=== PATIENT | female | born 1950 | race Caucasian/White ===

== ENCOUNTER 2018-05-24 06:28 | Inpatient (IN) | payer OTHER, MEDICARE ==
--- NOTE | 2018-05-24 07:10 | PDOC ---
History of Present Illness - General Chief Complaint: Lightheaded Stated Complaint: PAIN,DIZZINESS,DRY MOUTH Time Seen by Provider: 05/24/18 07:10 History Source: Patient Exam Limitations: No Limitations - History of Present Illness Initial Comments: 05/24/18 09:03 This is a 68 yo F with history of RUQ abd pain previously worked up by Dr Galaviz with US (showed cholelithiasis) and no other PNH, who presents due to severe 9/10 stabbing RUQ pain that started at 6 pm yesterday after a meal and has been constant, radiating to the back, associated with nausea, weakness and chills. It is similar in quality to her prior episodes of ruq pain but is more severe. prior episodes were self remitting after 2hr and occasionally associated with meals. She took ots flatulence medication this morning which did not help. She denies polyuria but no dysuria or hematuria. She denies sob, cough, fever, cp, palpitations, lightheadedness, vomiting, diarrhea, constipation, melena, hematochezia. Past History - Past Medical History Allergies/Adverse Reactions: Allergies Allergy/AdvReac Type Severity Reaction Status Date / Time No Known Allergies Allergy Verified 05/24/18 06:38 Home Medications: Ambulatory Orders NK [No Known Home Medication] 05/24/18 Anemia: No Asthma: No Cancer: No Cardiac Disorders: No CVA: No COPD: No CHF: No Dementia: No Diabetes: No GI Disorders: No Disorders: No HTN: No Hypercholesterolemia: No Liver Disease: No Seizures: No Thyroid Disease: No - Suicide/Smoking/Psychosocial Hx Smoking History: Never smoked Have you smoked in the past 12 months: No Information on smoking cessation initiated: No Hx Alcohol Use: No Drug/Substance Use Hx: No Substance Use Type: None Hx Substance Use Treatment: No Review of Systems - Review of Systems Able to Perform ROS?: Yes Is the patient limited Bulgarian proficient: No Constitutional: Yes: Chills, Malaise. No: Fever HEENTM: No: Nose Congestion, Difficulty Swallowing Respiratory: No: Cough, Orthopnea, Shortness of Breath Cardiac (ROS): No: Chest Pain, Edema, Irregular Heart Rate, Lightheadedness, Palpitations, Syncope ABD/GI: Yes: Nausea, Abdominal cramping. No: Abdominal Distended, Blood Streaked Bowels, Constipated, Diarrhea, Rectal Bleeding, Vomiting, Tarry Stools : No: Dysuria, Hematuria Musculoskeletal: Yes: Back Pain (r flank) Neurological: No: Headache, Numbness, Paresthesia Psychiatric: No: Anxiety, Depression *Physical Exam - Vital Signs Last Vital Signs Temp Pulse Resp BP Pulse Ox 97.2 F L 106 H 18 174/92 H 100 05/24/18 06:40 05/24/18 06:40 05/24/18 06:40 05/24/18 06:40 05/24/18 06:40 - Physical Exam General Appearance: Yes: Nourished, Appropriately Dressed, Mild Distress, Obese HEENT: positive: EOMI, Normal Voice, Symmetrical. negative: Scleral Icterus (R) , Scleral Icterus (L) Neck: positive: Trachea midline, Normal Thyroid, Supple. negative: Tender Respiratory/Chest: positive: Lungs Clear, Normal Breath Sounds. negative: Chest Tender Cardiovascular: positive: Regular Rate, S1, S2, Edema (b/l pedal, states its chronic ). negative: JVD Gastrointestinal/Abdominal: positive: Soft, Decreased BS, Guarding (voluntary in RUQ), Tenderness (ruq). 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 NML intact (grossly ), Fully Oriented, Alert, Normal Mood/Affect Moderate Sedation - Procedure Monitoring Vital Signs: Procedure Monitoring Vital Signs Temperature 97.2 F L 05/24/18 06:40 Pulse Rate 106 H 05/24/18 06:40 Respiratory Rate 18 05/24/18 06:40 Blood Pressure 174/92 H 05/24/18 06:40 O2 Sat by Pulse Oximetry (%) 100 05/24/18 06:40 ED Treatment Course - LABORATORY CBC & Chemistry Diagram: 05/24/18 07:50 05/24/18 07:50 - ADDITIONAL ORDERS Additional order review: 05/24/18 09:52 rectal temp 99.5F EKG NS 95, borderline L axis, inverted t in III, Q waves in I, AVL, no evidence of acs or strain labs significant for leukocytosis 12.8 w left shift and lactic acid 4.2, ua negative for infection clinical picture most consistent with severe sepsis due to gi source. strongly suspecting cholecystitis 05/24/18 12:24 abd US consistent with cholelithiasis w/o cholecystitis 05/24/18 12:26 patient being hydrated with NS, lactic acid trending down. also receiving zosyn 05/24/18 12:27 CT abd/pelvis done with iv cont shows distended gb with mild perechilecystic inflammation and cholelithiasis contacting gen surg and hospitalist for admission to m/s 05/24/18 12:31 05/24/18 12:56 *DC/Admit/Observation/Transfer Diagnosis at time of Disposition: Acute cholecystitis due to biliary calculus, Severe sepsis - Discharge Dispostion Condition at time of disposition: Guarded Decision to Admit order: Yes - Referrals - Patient Instructions - Post Discharge Activity
[2018-05-24] MEDS ORDERED: FAMOTIDINE 20 MG/50 ML IVPB 20 MG/50 ML MG IVPB ONE ×2 (07:27→07:46)
[2018-05-24] MEDS ORDERED: SODIUM CHLORIDE 0.9% 500 ML INFUS.BAG IV ONE ×2 (07:27→11:09)
[2018-05-24] MEDS ORDERED: ONDANSETRON 4 MG/2 ML VIAL IVPUSH ONE ×2 (07:28→13:29)
[2018-05-24] MEDS ORDERED: KETOROLAC TROMETHAMINE 30 MG/1 ML VIAL IVPUSH ONE (07:29)
[2018-05-24] MEDS ORDERED: ONDANSETRON 4 MG/2 ML VIAL ONE ×2 (07:46→13:40)
[2018-05-24] MEDS ORDERED: KETOROLAC TROMETHAMINE 30 MG/1 ML VIAL ONE (07:46)
[2018-05-24 08:09] LABS: BASO % 0.4 % (0-2.0); EOS % 0.1 % (0-4.5); HEMATOCRIT 42.2 % (32.4-45.2); HEMOGLOBIN 14.4 GM/dL (10.7-15.3); LYMPH % 6.9 % (8-40); MCH 31.3 pg (25.7-33.7); MCHC 34.2 g/dl (32.0-36.0); MEAN CELL VOLUME 91.7 fl (80-96); MEAN PLT VOLUME 8.8 fl (7.5-11.1); MONO % 2.1 % (3.8-10.2); NEUT % 90.5 % (42.8-82.8); PLATELET COUNT 225 K/MM3 (134-434); RDW 13.9 % (11.6-15.6); WHITE BLOOD COUNT 12.8 K/mm3 (4.0-10.0)
[2018-05-24 08:41] LABS: ALBUMIN 3.8 g/dl (3.4-5.0); ALK PHOS 175 U/L (45-117); ANION GAP 12 MMOL/L (8-16); BILIRUBIN,TOTAL 0.4 mg/dL (0.2-1); BLOOD UREA NITROGEN 16 mg/dL (7-18); CALCIUM 8.9 mg/dL (8.5-10.1); CHLORIDE 100 mmol/L (98-107); CO2 23 mmol/L (21-32); GLUCOSE,RANDOM 177 mg/dL (74-106); LIPASE 98 U/L (73-393); POTASSIUM 3.7 mmol/L (3.5-5.1); SGOT/AST 17 U/L (15-37); SGPT/ALT 21 U/L (13-61); SODIUM 135 mmol/L (136-145); TOT PROT 8.8 g/dl (6.4-8.2); TRIGLYCERIDES 75 mg/dL (0-150)
[2018-05-24] MEDS ORDERED: ACETAMINOPHEN 1000 MG/100 ML VIAL (NON FORMULARY) IVPB ONE ×2 (08:57→23:09)
[2018-05-24] MEDS ORDERED: VANCOMYCIN 1 GM in D5W (PRE-DOCKED) 1,000 MG/250 ML IVPB ONE (08:57)
[2018-05-24] MEDS ORDERED: PIPERACILLIN/TAZOB 3.375 GM 3.375 GM in DEXTROSE 5%-WATER - 50 ML IVPB ONE (08:58)
[2018-05-24] MEDS ORDERED: PIPERACILLIN/TAZOB 4.5 GM 4.5 GM in DEXTROSE 5%-WATER 100 ML IVPB ONE (09:31)
[2018-05-24] MEDS ORDERED: PIPERACILLIN/TAZOB 4.5 GM 4.5 GM/100 ML BAG IVPB ONE (10:08)
[2018-05-24 10:19] LABS: URINE APPEARANCE CLEAR; URINE BILIRUBIN NEGATIVE (<2.0 mg/dL); URINE COLOR LTYELLOW; URINE GLUCOSE (UA) 1+ (NEGATIVE); URINE KETONE TRACE (NEGATIVE); URINE LEUK ESTERASE NEGATIVE (NEGATIVE); URINE NITRITE NEGATIVE (NEGATIVE); URINE PROTEIN 2+ (NEGATIVE); URINE UROBILINOGEN NEGATIVE mg/dL (0.2-1.0)
--- NOTE | 2018-05-24 10:34 | PDOC ---
Attending Attestation - Resident Resident Name: Julissa Brenner - ED Attending Attestation I have performed the following: I have examined & evaluated the patient, The case was reviewed & discussed with the resident, I agree w/resident's findings & plan, Exceptions are as noted - HPI HPI: 05/24/18 10:39 68 years old past medical history significant for obesity gallstones presents to the ED with one-day history of 10 out of 10 stabbing right upper quadrant pain starting yesterday after a meal. Pain is persistent constant no associated fever chills nausea vomiting or diarrhea ROS: A complete review of 10 out of 10 review of systems is taken and is negative apart from what is previously mentioned below and in the HPI. - Physicial Exam PE: 05/24/18 10:39 Vitals: Triage Vital signs reviewed General Appearance: no acute distress, well nourished well developed, Head: Atraumatic, Cardiac: Regular rate and rhythym, no murmurs, no rubs, no gallops, Lungs: Clear to auscultation bilateral, good air movement bilaterally, Abdomen: Soft, non distended, normal bowel sounds, right upper quadrant tenderness to palpation Extremities: Full range of motion to all extremities, no cyanosis, clubbing, or edema Skin: Warm and dry, no rashes or lesions, no rash, no petechiae Psych: normal mood, normal affect - Medical Decision Making 05/24/18 10:41 68 years old with reproducible right upper quadrant tenderness palpation we'll obtain labs ultrasound pain meds IV fluids observe and reassess. 05/24/18 11:46 Elevated lactic no clear evidence of cholecystitis on ultrasound Patient will hydrate prior to CT We'll CT abdomen pelvis to rule out other abdominal pathology. 05/24/18 15:44 At this time based on laboratory analysis history and examination is most consistent with cholecystitis is versus cholelithiasis given elevated lactic after consultation with surgery decision make to perform cholecystectomy Patient covered with broad-spectrum antibiotics she'll be taken to or for definitive management.
[2018-05-24 10:35] LABS: EPI CELLS RARE /HPF (FEW); URINE MUCUS RARE
--- NOTE | 2018-05-24 11:40 | EKG ---
Test Reason : Blood Pressure : / mmHG Vent. Rate : 095 BPM Atrial Rate : 095 BPM P-R Int : 162 ms QRS Dur : 090 ms QT Int : 370 ms P-R-T Axes : 033 -28 007 degrees QTc Int : 464 ms NORMAL SINUS RHYTHM POSSIBLE ANTEROLATERAL INFARCT , AGE UNDETERMINED ABNORMAL ECG NO PREVIOUS ECGS AVAILABLE Confirmed by DIMPLE REYNOLDS MD ([id number]) on 05/24/2018 11:39:39 AM Referred By: Confirmed By:DIMPLE REYNOLDS MD
[2018-05-24] MEDS ORDERED: morphine CARPU-JECT 4 MG/1 ML DISP.SYRIN IVPUSH ONE (13:17)
--- NOTE | 2018-05-24 13:18 | CONSULT ---
- Consultation REQUESTING PROVIDER: CONSULT REQUEST: We have been asked to surgically evaluate this patient for cholecystitis PCP:Kei Tsai MD HISTORY OF PRESENT ILLNESS: 68yo F presented to the ED with complaint of severe RUQ pain since last night. Pt states the pain was associated with nausea but no vomiting. Pt denies any fever, but said she had chills. Pt was told in the past that she had gallstones , but never followed up with a surgeon. Pt states that pain started after she ate dinner. Pt denies constipation or diarrhea. Pt states that pain is a little improved, but continues to complain of RUQ pain. PMHx: Denies PSHx: denies Home Medications Medication Instructions Recorded NK [No Known Home Medication] 05/24/18 Allergies Allergy/AdvReac Type Severity Reaction Status Date / Time No Known Allergies Allergy Verified 05/24/18 06:38 PHYSICAL EXAM: GENERAL: Awake, alert, and fully oriented, in no acute distress. HEAD: Normal with no signs of trauma. EYES: PERRL, sclera anicteric, conjunctiva clear. NECK: Normal ROM, supple without lymphadenopathy, JVD, or masses. LUNGS: Clear to auscultation bilat anteriorly. No wheezes, and no crackles. No accessory muscle use. HEART: Regular rate and rhythm. No murmurs ABDOMEN: Soft, nontender, diffuse abd pain worst in RUQ, normoactive bowel sounds, no guarding, no rebound, no masses. No organomegaly. NEUROLOGICAL: Normal speech, gait not observed. PSYCH: Cooperative. Good eye contact. Appropriate mood and affect. SKIN: Warm, dry, normal turgor, no rashes or lesions noted. Vital Signs Temperature 99.2 F 05/24/18 09:50 Pulse Rate 92 H 05/24/18 09:11 Respiratory Rate 18 05/24/18 09:11 Blood Pressure 162/99 05/24/18 09:11 O2 Sat by Pulse Oximetry (%) 96 05/24/18 09:11 Lab Results WBC 12.8 K/mm3 (4.0-10.0) H 05/24/18 07:50 RBC 4.60 M/mm3 (3.60-5.2) 05/24/18 07:50 Hgb 14.4 GM/dL (10.7-15.3) 05/24/18 07:50 Hct 42.2 % (32.4-45.2) 05/24/18 07:50 MCV 91.7 fl (80-96) 05/24/18 07:50 MCHC 34.2 g/dl (32.0-36.0) 05/24/18 07:50 RDW 13.9 % (11.6-15.6) 05/24/18 07:50 Plt Count 225 K/MM3 (134-434) 05/24/18 07:50 Sodium 135 mmol/L (136-145) L 05/24/18 07:50 Potassium 3.7 mmol/L (3.5-5.1) 05/24/18 07:50 Chloride 100 mmol/L (98-107) 05/24/18 07:50 Carbon Dioxide 23 mmol/L (21-32) 05/24/18 07:50 Anion Gap 12 MMOL/L (8-16) 05/24/18 07:50 BUN 16 mg/dL (7-18) 05/24/18 07:50 Creatinine 1.0 mg/dL (0.55-1.3) 05/24/18 07:50 Random Glucose 177 mg/dL (74-106) H 05/24/18 07:50 Calcium 8.9 mg/dL (8.5-10.1) 05/24/18 07:50 Blood Type O POSITIVE 05/24/18 10:03 Antibody Screen Negative 05/24/18 07:50 Abd US: Gallstones present, no CBD dilatation Problem List - Problems (1) Acute cholecystitis due to biliary calculus Assessment/Plan: Plan -pt will go to the OR today for lap cholecystitis, pt agrees with plan. -Keep NPO -IV fluids -admit to Medicine Code(s): K80.00 - CALCULUS OF GALLBLADDER W ACUTE CHOLECYST W/O OBSTRUCTION
[2018-05-24] MEDS ORDERED: morphine SULFATE 4 MG/ML VIAL ONE (13:19)
--- NOTE | 2018-05-24 13:23 | HP ---
Admitting History and Physical - Primary Care Physician PCP: Rickey Thomas - Admission Chief Complaint: cholecystitis History of Present Illness: 68 year old female pmh of obesity, cholelithiasis, hepatic steatosis presents with worsening abdominal pain and nausea since yesterday. Pt reports onset of severe RUQ/epigastric pain after dinner around 6pm. She describes the pain was 9 /10 sharp, radiating to the lower back. Pt reports pain is improved currently after receiving morphine. She also c/o accompanying chills. Pt endorses taking 2 regular aspirin yesterday for LBP. Otherwise, pt denies any further complaints. Denies any chest pain, sob, lightheadedness, dizziness, vomiting, dysuria, fever, or rash. Upon discussion with pt's PCP , pt has poor compliance with outpt follow up. History Source: Patient, Family Member, Medical Record Limitations to Obtaining History: Poor Historian - Past Medical History Gastrointestinal: Yes: Diverticulosis Hepatobiliary: Yes: Cholelithiasis, Other (Hepatic steatosis) - Past Surgical History Past Surgical History: Yes: Colonoscopy - Smoking History Smoking history: Never smoked Have you smoked in the past 12 months: No - Alcohol/Substance Use Hx Alcohol Use: No History of Substance Use: reports: None - Social History Usual Living Arrangement: Yes: With Significant Other (sister) ADL: Independent Home Medications - Allergies Allergies/Adverse Reactions: Allergies Allergy/AdvReac Type Severity Reaction Status Date / Time ephedrine AdvReac Verified 05/24/18 13:54 - Home Medications Home Medications: Ambulatory Orders Aspirin [ASA -] 325 mg PO DAILY PRN 05/24/18 Family Disease History - Family Disease History Family Disease History: Diabetes: Father, Heart Disease: Father, Mother Review of Systems Findings/Remarks: as per hpi Physical Examination Vital Signs: Vital Signs Temperature 99.2 F 05/24/18 09:50 Pulse Rate 92 H 05/24/18 09:11 Respiratory Rate 18 05/24/18 09:11 Blood Pressure 162/99 05/24/18 09:11 O2 Sat by Pulse Oximetry (%) 96 05/24/18 09:11 Constitutional: Yes: Well Nourished, Anxious, Obese Cardiovascular: Yes: Regular Rate and Rhythm, Tachycardia Respiratory: Yes: WNL, Regular, CTA Bilaterally. No: Accessory Muscle Use, SOB , Tachypnea, Wheezes Gastrointestinal: Yes: Normal Bowel Sounds, Soft, Abdomen, Obese, Tenderness ( RUQ). No: Distention Renal/: Yes: WNL Musculoskeletal: Yes: WNL Extremities: Yes: WNL Neurological: Yes: WNL, Alert, Oriented Psychiatric: Yes: WNL, Alert, Oriented Labs: CBC, BMP 05/24/18 07:50 05/24/18 07:50 Imaging - Results Cat Scan: Report Reviewed Ultrasound: Report Reviewed EKG: Report Reviewed, Image Reviewed (NSR) Problem List - Problems (1) Sepsis Assessment/Plan: tachycardic, wbc 12k, lactic acid 4.2 at admission alk phos elevated 2/[address] abd/pelvic- distended gall bladder/mild inflammation/calculi case discussed w/ surgery- plan for lap cholecystectomy today NPO IVF Morphine/Zofran prn Zosyn per ID await all cultures surgery following Code(s): A41.9 - SEPSIS, UNSPECIFIED ORGANISM (2) Acute cholecystitis due to biliary calculus Assessment/Plan: as above Code(s): K80.00 - CALCULUS OF GALLBLADDER W ACUTE CHOLECYST W/O OBSTRUCTION (3) Lactic acidosis Assessment/Plan: improving, trend Code(s): E87.2 - ACIDOSIS (4) Elevated blood pressure reading without diagnosis of hypertension Assessment/Plan: suspect anxiety provoked BP controlled outpt adequate pain control reassess Code(s): R03.0 - ELEVATED BLOOD-PRESSURE READING, W/O DIAGNOSIS OF HTN (5) Obesity Assessment/Plan: recommend outpt management by PCP Code(s): E66.9 - OBESITY, UNSPECIFIED Qualifiers: Obesity type: due to excess calories Obesity classification: adult class 3 (BMI >= 40) Body mass index: BMI 45.0-49.9
[2018-05-24] MEDS ORDERED: ONDANSETRON 4 MG/2 ML VIAL IVPUSH PRN ×2 (13:25→19:29)
[2018-05-24] MEDS ORDERED: MORPHINE SULFATE 2 MG/ML VIAL IVPUSH PRN (13:27)
--- NOTE | 2018-05-24 13:36 | PN ---
Progress Note (short form) - Note Progress Note: ID consult dictated imp/reccd 68 yo female with known cholelithiasis ate eggs last night and developed midepigastric pain radiation to her RUQ and nausea did not vomit no dysuria +BM came to ED lactic acid elevated 4.2 leukocytosis-12.8 ct scan abd/pelvis-distended GB with calculi with mild pericholycystic inflammation cultures sent started on Zosyn suggest continue zosyn for possible acute cholycystitis surgical evaluation in progress Problem List - Problems (1) Acute cholecystitis due to biliary calculus Code(s): K80.00 - CALCULUS OF GALLBLADDER W ACUTE CHOLECYST W/O OBSTRUCTION (2) Lactic acidosis Code(s): E87.2 - ACIDOSIS
[2018-05-24] MEDS ORDERED: KETOROLAC TROMETHAMINE 30 MG/1 ML VIAL IVPUSH PRN (13:40)
[2018-05-24] MEDS ORDERED: SODIUM CHLORIDE 1,000 ML IV SCH ×2 (13:45→19:29)
[2018-05-24 13:52] LABS: INR 1.09 (0.83-1.09); PROTHROMBIN TIME (PATIENT) 12.9 SEC (9.7-13.0)
[2018-05-24] MEDS ORDERED: PROPOFOL 20 ML ONE (14:27)
[2018-05-24] MEDS ORDERED: ROCURONIUM BROMIDE 50 MG/5 ML VIAL ONE (14:28)
[2018-05-24] MEDS ORDERED: SUCCINYLCHOLINE CHLORIDE 200 MG/10 ML VIAL ONE (14:28)
--- NOTE | 2018-05-24 14:53 | CONS ---
DATE OF CONSULTATION: DATE OF DICTATION: 05/24/2018 REQUESTING PHYSICIAN: Hospitalist service. HISTORY: This is a 68-year-old woman. She is followed outpatient by Dr. Thomas who has a known history of cholelithiasis. She presents with severe right upper quadrant pain that started last night after she had eggs. It has been constant. It radiates from her mid epigastric region around to her right upper quadrant in her back. She has had nausea, weakness, and chills. She has had no fever. She has had no vomiting. She reports having had a bowel movement at home. She has no dysuria. She has had episodes like this in the past, but this is definitely the worst she has ever had. She denies cough, shortness of breath, or fever. ALLERGIES: EPHEDRINE. MEDICATIONS: She takes aspirin p.r.n. at home. She takes MiraLAX p.r.n. at home for diverticulosis. PAST MEDICAL HISTORY: Notable for prior cholecystectomy that revealed diverticulosis. She has known gallstones. PAST SURGICAL HISTORY: She has never had any surgery. SOCIAL HISTORY: She lives with her sister. There is no history of any cigarette or substance use. REVIEW OF SYSTEMS: Notable for chills and nausea. She also has chronic back pain, which she has had for several years she attributes to taking care of her elderly mother. PHYSICAL EXAMINATION: Vital Signs: T-max 99.2, culture results temperature 98.6, pulse 120, blood pressure 204/100, respiratory rate 24. She is saturating 98% on room air. HEENT: She is normocephalic. Her eyes are anicteric. Neck: Supple. General: She is insistent on sitting due to nausea. She does not want to lie down. Lungs: Clear to auscultation. She has diminished breath sounds at the bases. Heart: Regular rate and rhythm. Abdomen: Soft. She has some mild midepigastric discomfort to palpation. She has no CVA tenderness. She has no suprapubic pain. Extremities: Without edema. LABORATORY DATA: White count 12.8, hemoglobin 14.4, platelets 225, BUN 16, creatinine 1, lactic acid 4.2, repeat 2.8 after hydration, alkaline phosphatase 175. Urinalysis is negative. Cultures are pending. Abdominal ultrasound was limited due to patient's body habitus. She had a CAT scan of her abdomen and pelvis that was notable for diffuse fatty infiltration of the liver, distended gallbladder with suspected calculi, and mild pericholecystic inflammation. In summary, this is a 68-year-old obese woman with abdominal pain, known cholelithiasis, lactic acidosis, CT scan suggestive of acute cholecystitis. Cultures have been sent. She was started on Zosyn. I would suggest we continue Zosyn for possible acute cholecystitis. Surgical evaluation is in progress. Further recommendations to follow. The case was discussed with the hospitalist. JUMANA MORAES M.D. [id number]
[2018-05-24] MEDS ORDERED: DEXAMETHASONE SOD PHOSPHATE 4 MG/1 ML VIAL ONE (15:23)
[2018-05-24] MEDS ORDERED: PHENYLEPHRINE HCL 10 MG/1 ML SINGLE DOSE VIAL ONE (16:24)
[2018-05-24] MEDS ORDERED: BUPIVACAINE HCL/PF 0.5% (5MG/ML) 10 ML VIAL IJ ONE (16:43)
[2018-05-24] MEDS ORDERED: METOPROLOL TARTRATE 5 MG/5 ML VIAL ONE (17:52)
[2018-05-24] MEDS ORDERED: NEOSTIGMINE METHYLSULFATE 0.5 MG/ML - 10 ML MDV ONE (17:56)
[2018-05-24] MEDS ORDERED: PIPERACILLIN/TAZOB 4.5 GM 4.5 GM in DEXTROSE 5%-WATER 100 ML IVPB SCH (18:00)
[2018-05-24] MEDS ORDERED: LORazepam 2 MG/ML SDV VIAL ONE (18:18)
--- NOTE | 2018-05-24 18:23 | OP ---
Operative Note - Note: Operative Date: 05/24/18 Pre-Operative Diagnosis: Cholelithiasis, Acute Cholecystitis Operation: Laparoscopic cholecystectomy Findings: as dictated Post-Operative Diagnosis: Same as Pre-op Surgeon: Chito Benites Anesthesiologist/ART INSTALLER: Angelina Pizano Anesthesia: General, Local Specimens Removed: Gallbladder, multiple gallstones Estimated Blood Loss (mls): 50 (ml) Drains & Tubes with Location: Inderjit drain left in gallbladder bed Fluid Volume Replaced (mls): 1,300 (ml LR) Operative Report Dictated: Yes
[2018-05-24] MEDS ORDERED: LORazepam 2 MG/ML SDV VIAL IVPUSH PRN (18:59)
[2018-05-24] MEDS ORDERED: PIPERACILLIN/TAZOBACTAM 4.5 GM VIAL IVPB ONE (19:45)
[2018-05-24 21:53] VITALS: BMI 52.2
[2018-05-24] MEDS: MORPHINE SULFATE 2 MG/ML VIAL IVPUSH PRN (21:58)
[2018-05-24] MEDS: LACTATED RINGERS SOLUTION 1,000 ML IV SCH (21:59)
[2018-05-24] MEDS: HEPARIN NA (PORCINE) 5,000 UNITS/ML 1ML VIAL SQ SCH (21:59)
[2018-05-24] MEDS ORDERED: HEPARIN NA (PORCINE) 5,000 UNITS/ML 1ML VIAL SQ SCH (22:00)
--- NOTE | 2018-05-24 22:50 | CONSULT ---
Consultation: REQUESTING PROVIDER: Dr Benites CONSULT REQUEST: We have been asked to medically evaluate this patient for ( Post Op monitor ). HISTORY OF PRESENT ILLNESS: 68 year old female pmh of obesity, cholelithiasis, hepatic steatosis presents with worsening abdominal pain and nausea since yesterday. Pt reports onset of severe RUQ/epigastric pain after dinner around 6pm. She describes the pain was 9 /10 sharp, radiating to the lower back. Pt reports pain is improved currently after receiving morphine. She also c/o accompanying chills. Pt endorses taking 2 regular aspirin yesterday for LBP. Otherwise, pt denies any further complaints. Denies any chest pain, sob, lightheadedness, dizziness, vomiting, dysuria, fever, or rash. Upon discussion with pt's PCP , pt has poor compliance with outpt follow up. REVIEW OF SYSTEMS: unable to obtain . PHYSICAL EXAMINATION Vital Signs - 24 hr 05/24/18 05/24/18 05/24/18 06:40 09:11 09:50 Temperature 97.2 F L 99.2 F Pulse Rate 106 H Pulse Rate [ 92 H Left Radial] Respiratory 18 18 Rate Blood Pressure 174/92 H Blood Pressure 162/99 [Left Arm] O2 Sat by Pulse 100 96 Oximetry (%) 05/24/18 05/24/18 05/24/18 12:38 13:20 13:47 Temperature 98.7 F 98.6 F Pulse Rate 93 H Pulse Rate [ 120 H Left Radial] Respiratory 18 24 H Rate Blood Pressure 102/75 Blood Pressure 204/100 H [Left Arm] O2 Sat by Pulse 97 98 Oximetry (%) 05/24/18 05/24/18 05/24/18 13:57 18:14 18:30 Temperature 98.6 F 98.1 F Pulse Rate 80 82 Pulse Rate [ 102 H Left Radial] Respiratory 21 H 37 H 30 H Rate Blood Pressure 177/100 H 142/82 Blood Pressure 201/105 H [Left Arm] O2 Sat by Pulse 97 98 95 Oximetry (%) 05/24/18 05/24/18 05/24/18 18:45 19:00 19:15 Temperature Pulse Rate 88 84 89 Pulse Rate [ Left Radial] Respiratory 28 H 25 H 21 H Rate Blood Pressure 120/74 132/105 H 121/78 Blood Pressure [Left Arm] O2 Sat by Pulse 98 95 96 Oximetry (%) 05/24/18 05/24/18 05/24/18 19:30 19:45 20:00 Temperature Pulse Rate 80 89 104 H Pulse Rate [ Left Radial] Respiratory 22 H 14 15 Rate Blood Pressure 109/65 100/74 132/74 Blood Pressure [Left Arm] O2 Sat by Pulse 95 98 97 Oximetry (%) 05/24/18 05/24/18 05/24/18 20:15 20:30 20:45 Temperature 98.7 F 98.7 F Pulse Rate 110 H 104 H 88 Pulse Rate [ Left Radial] Respiratory 21 H 26 H 18 Rate Blood Pressure 124/58 L 125/79 112/59 L Blood Pressure [Left Arm] O2 Sat by Pulse 95 97 97 Oximetry (%) 05/24/18 22:00 Temperature Pulse Rate 93 H Pulse Rate [ Left Radial] Respiratory 15 Rate Blood Pressure 121/83 Blood Pressure [Left Arm] O2 Sat by Pulse Oximetry (%) GENERAL: Awake, alert, HEAD: Normal with no signs of trauma. EYES: Pupils equal, round and reactive to light, extraocular movements intact, EARS, NOSE, THROAT: Ears normal, nares patent, oropharynx clear without exudates. Moist mucous membranes. NECK: Normal range of motion, supple LUNGS: Breath sounds equal, clear to auscultation bilaterally. HEART: Regular rate and rhythm, normal S1 and S2 without murmur, rub or gallop. ABDOMEN: obese Soft, mild diffuse tender, distended, normoactive bowel sounds, no guarding,3 surgical wound covered with gauze , MUSCULOSKELETAL: Normal range of motion at all joints. No bony deformities or tenderness. No CVA tenderness. LOWER EXTREMITIES: 2+ pulses, warm, well-perfused. No calf tenderness. No peripheral edema. NEUROLOGICAL: no focal defect Laboratory Results - last 24 hr 05/24/18 05/24/18 05/24/18 07:50 07:50 07:50 WBC 12.8 H RBC 4.60 Hgb 14.4 Hct 42.2 MCV 91.7 MCH 31.3 MCHC 34.2 RDW 13.9 Plt Count 225 MPV 8.8 Absolute Neuts (auto) 11.6 H Neutrophils % 90.5 H Lymphocytes % 6.9 L Monocytes % 2.1 L Eosinophils % 0.1 Basophils % 0.4 Nucleated RBC % 0 PT with INR INR Sodium 135 L Potassium 3.7 Chloride 100 Carbon Dioxide 23 Anion Gap 12 BUN 16 Creatinine 1.0 Creat Clearance w eGFR 54.97 Random Glucose 177 H Lactic Acid 4.2 H* Calcium 8.9 Total Bilirubin 0.4 AST 17 ALT 21 Alkaline Phosphatase 175 H Creatine Kinase 56 Troponin I 0.02 Total Protein 8.8 H Albumin 3.8 Triglycerides 75 Lipase 98 Urine Color Urine Appearance Urine pH Ur Specific [place] Urine Protein Urine Glucose (UA) Urine Ketones Urine Blood Urine Nitrite Urine Bilirubin Urine Urobilinogen Ur Leukocyte Esterase Urine WBC (Auto) Urine RBC (Auto) Ur Epithelial Cells Urine Mucus Blood Type Antibody Screen 05/24/18 05/24/18 05/24/18 07:50 09:47 10:03 WBC RBC Hgb Hct MCV MCH MCHC RDW Plt Count MPV Absolute Neuts (auto) Neutrophils % Lymphocytes % Monocytes % Eosinophils % Basophils % Nucleated RBC % PT with INR INR Sodium Potassium Chloride Carbon Dioxide Anion Gap BUN Creatinine Creat Clearance w eGFR Random Glucose Lactic Acid Calcium Total Bilirubin AST ALT Alkaline Phosphatase Creatine Kinase Troponin I Total Protein Albumin Triglycerides Lipase Urine Color Ltyellow Urine Appearance Clear Urine pH 8.0 Ur Specific [place] 1.015 Urine Protein 2+ H Urine Glucose (UA) 1+ H Urine Ketones Trace H Urine Blood Negative Urine Nitrite Negative Urine Bilirubin Negative Urine Urobilinogen Negative Ur Leukocyte Esterase Negative Urine WBC (Auto) 2 Urine RBC (Auto) 3 Ur Epithelial Cells Rare Urine Mucus Rare Blood Type O POSITIVE O POSITIVE Antibody Screen Negative 05/24/18 05/24/18 11:22 13:28 WBC RBC Hgb Hct MCV MCH MCHC RDW Plt Count MPV Absolute Neuts (auto) Neutrophils % Lymphocytes % Monocytes % Eosinophils % Basophils % Nucleated RBC % PT with INR 12.90 INR 1.09 Sodium Potassium Chloride Carbon Dioxide Anion Gap BUN Creatinine Creat Clearance w eGFR Random Glucose Lactic Acid 2.8 H* Calcium Total Bilirubin AST ALT Alkaline Phosphatase Creatine Kinase Troponin I Total Protein Albumin Triglycerides Lipase Urine Color Urine Appearance Urine pH Ur Specific [place] Urine Protein Urine Glucose (UA) Urine Ketones Urine Blood Urine Nitrite Urine Bilirubin Urine Urobilinogen Ur Leukocyte Esterase Urine WBC (Auto) Urine RBC (Auto) Ur Epithelial Cells Urine Mucus Blood Type Antibody Screen Active Medications Generic Name Dose Route Start Last Admin Trade Name Freq PRN Reason Stop Dose Admin Fentanyl 50 mcg 05/24/18 18:58 Sublimaze Injection - IVPUSH Q5M PRN PAIN-PACU ORDER X 4 DOSES ONLY Heparin Sodium (Porcine) 5,000 unit 05/24/18 22:00 05/24/18 21:59 Heparin - SQ 5,000 unit TID DOMINICK Administration Piperacillin Sod/Tazobactam 100 mls @ 200 mls/hr 05/25/18 19:45 05/24/18 20: 00 Sod 4.5 gm/ Dextrose IVPB 100 mls Q8H-IV DOMINICK Administration Protocol Lactated Ringer's 1,000 mls @ 42 mls/hr 05/24/18 19:45 05/24/18 21:59 Lactated Ringers Solution IV Not Given ASDIR DOMINICK Influenza Virus Vaccine Quadrival 60 mcg 05/24/18 21:54 Flulaval Quad [id number] IM 05/24/18 21:55 .ONCE ONE Lorazepam 0.5 mg 05/24/18 18:59 Ativan Injection - IVPUSH ONCE PRN AGITATION Morphine Sulfate 2 mg 05/24/18 19:29 05/24/18 21:58 Morphine Sulfate IVPUSH 2 mg Q4H PRN Administration PAIN LEVEL 6-10 Ondansetron HCl 4 mg 05/24/18 19:29 05/24/18 22:06 Zofran Injection IVPUSH 4 mg Q6H PRN Administration NAUSEA AND/OR VOMITING Pneumococcal 13-Valent Conj Vacc 0.5 ml 05/24/18 21:54 Prevnar 13 Syringe - IM 05/24/18 21:55 .ONCE ONE CBC, BMP 05/24/18 07:50 05/24/18 07:50 ASSESSMENT/PLAN: 68 year old female pmh of obesity, cholelithiasis, hepatic steatosis presents with worsening abdominal pain and nausea since yesterday, had laparoscopic cholecystectomy and was admitted to ICU per [facility] request for over night monitoring # S/P laparoscopic cholecystectomy for acute cholecystitis * POD#0 * Pain control per anesthesia * IV fluid RL * Incentive spirometry * CBC, CMP , MAg, P in AM * BP, audiology technician * pulse oxy * PT/OT when stable * NPO till passing flatus * zosyn per ID * Monitor drain # Lactic acidosis * trending down likely due to infection vs acute phase * IV fluids * ABx per ID Dank Zosyn # Morbid obesity * consulted about life style change and diet modification # FEN * LR @ 42 CC * monitor lytes * NPO # Proph * DVTS SCDS , hep SQ TID * GI: not indicated # Dispo: monitor in ICU over night # Full code Dispo: We will continue to follow the patient. Thank you for this consultative opportunity. Visit type - Emergency Visit Emergency Visit: Yes ED Registration Date: 05/24/18 Care time: The patient presented to the Emergency Department on the above date and was hospitalized for further evaluation of their emergent condition. - New Patient This patient is new to me today: Yes Date on this admission: 05/24/18 - Critical Care Critical Care patient: Yes Total Critical Care Time (in minutes): 45 Critical Care Statement: The care of this patient involved high complexity decision making to prevent further life threatening deterioration of the patient 's condition and/or to evaluate & treat vital organ system(s) failure or risk of failure.
[2018-05-25] MEDS: PIPERACILLIN/TAZOB 4.5 GM 4.5 GM in DEXTROSE 5%-WATER 100 ML IVPB SCH ×3 (03:15→17:30)
[2018-05-25] MEDS ORDERED: DEXTROSE 5%-WATER 100 ML IVPB ONE ×3 (03:28→17:16)
[2018-05-25] MEDS ORDERED: PIPERACILLIN/TAZOBACTAM 4.5 GM VIAL IVPB ONE ×3 (03:28→17:16)
[2018-05-25] MEDS: MORPHINE SULFATE 2 MG/ML VIAL IVPUSH PRN ×4 (03:30→20:34)
[2018-05-25] MEDS: HEPARIN NA (PORCINE) 5,000 UNITS/ML 1ML VIAL SQ SCH ×3 (05:43→21:16)
[2018-05-25 06:29] LABS: BASO % 0.1 % (0-2.0); HEMATOCRIT 35.8 % (32.4-45.2); HEMOGLOBIN 11.6 GM/dL (10.7-15.3); LYMPH % 1.8 % (8-40); MCH 30.3 pg (25.7-33.7); MCHC 32.4 g/dl (32.0-36.0); MEAN CELL VOLUME 93.3 fl (80-96); MEAN PLT VOLUME 9.1 fl (7.5-11.1); NEUT % 93.1 % (42.8-82.8); PLATELET COUNT 169 K/MM3 (134-434); RBC 3.84 M/mm3 (3.60-5.2); RDW 14.6 % (11.6-15.6); WHITE BLOOD COUNT 25.8 K/mm3 (4.0-10.0)
[2018-05-25 07:14] LABS: ALBUMIN 2.7 g/dl (3.4-5.0); ALK PHOS 102 U/L (45-117); ANION GAP 10 MMOL/L (8-16); BILIRUBIN,TOTAL 0.9 mg/dL (0.2-1); BLOOD UREA NITROGEN 20 mg/dL (7-18); CALCIUM 7.6 mg/dL (8.5-10.1); CHLORIDE 107 mmol/L (98-107); CO2 23 mmol/L (21-32); CREATININE 1.4 mg/dL (0.55-1.3); GLUCOSE,RANDOM 172 mg/dL (74-106); MAGNESIUM 1.6 mg/dL (1.8-2.4); PHOSPHOROUS 4.6 mg/dL (2.5-4.9); POTASSIUM 4.1 mmol/L (3.5-5.1); SGOT/AST 107 U/L (15-37); SGPT/ALT 76 U/L (13-61); SODIUM 140 mmol/L (136-145); TOT PROT 6.4 g/dl (6.4-8.2)
[2018-05-25] MEDS ORDERED: MAGNESIUM 2GM/50ML STERILE WATER IVPB IVPB ONE (07:31)
--- NOTE | 2018-05-25 08:52 | PN ---
Progress Note (short form) - Note Progress Note: OOB in wheelchair alert c/o incisional pain s/p lap choly last night Vital Signs Period Temp Pulse Resp BP Sys/Nagel Pulse Ox Last 24 Hr 98.1 F-99.2 F 80-120 13-37 100-204/58-105 95-98 cor-rrr lungs decreased bs at bases abd soft,+BRYON drain ext no edema CBC, BMP 05/25/18 05:15 05/25/18 05:15 Microbiology 05/24/18 08:05 Blood - Peripheral Venous Blood Culture - Preliminary NO GROWTH OBTAINED AFTER 24 HOURS, INCUBATION TO CONTINUE FOR 4 DAYS. 05/24/18 07:50 Blood - Peripheral Venous Blood Culture - Preliminary NO GROWTH OBTAINED AFTER 24 HOURS, INCUBATION TO CONTINUE FOR 4 DAYS. Current Medications Heparin Sodium (Porcine) (Heparin -) 5,000 unit SQ TID DOMINICK Last Admin: 05/25/18 05:43 Dose: 5,000 unit Lactated Ringer's (Lactated Ringers Solution) 1,000 mls @ 42 mls/hr IV ASDIR DOMINICK Last Admin: 05/24/18 21:59 Dose: Not Given Piperacillin Sod/Tazobactam (Sod 4.5 gm/ Dextrose) 100 mls @ 200 mls/hr IVPB Q8H-IV DOMINICK; Protocol Last Admin: 05/25/18 03:15 Dose: 200 mls/hr Influenza Virus Vaccine Quadrival (Flulaval Quad [id number]) 60 mcg IM .ONCE ONE Stop: 05/25/18 10:01 Lorazepam (Ativan Injection -) 0.5 mg IVPUSH ONCE PRN PRN Reason: AGITATION Last Admin: 05/24/18 23:14 Dose: 0.5 mg Morphine Sulfate (Morphine Sulfate) 2 mg IVPUSH Q4H PRN PRN Reason: PAIN LEVEL 6-10 Last Admin: 05/25/18 08:46 Dose: 2 mg Ondansetron HCl (Zofran Injection) 4 mg IVPUSH Q6H PRN PRN Reason: NAUSEA AND/OR VOMITING Last Admin: 05/24/18 22:06 Dose: 4 mg Pneumococcal 13-Valent Conj Vacc (Prevnar 13 Syringe -) 0.5 ml IM .ONCE ONE Stop: 05/25/18 10:01 a/p pod #1 s/p lap choly postop leukocytosis encourage incentive spirometry obesity continue zosyn Problem List - Problems (1) Acute cholecystitis due to biliary calculus Code(s): K80.00 - CALCULUS OF GALLBLADDER W ACUTE CHOLECYST W/O OBSTRUCTION (2) Lactic acidosis Code(s): E87.2 - ACIDOSIS
--- NOTE | 2018-05-25 08:59 | PN ---
Progress Note (short form) - Note Progress Note: Pt day1 s/p lap luis fernando under GA. Pt p/w lactic acidosis prior to sx- sent to ICU for close postop monitoring. Pt OOB to chair, pain well controlled, VSS. No apparrent anesthetic issues/complications
--- NOTE | 2018-05-25 09:14 | PN ---
Teaching Attending Note Name of Resident: Rebecca Ho ATTENDING PHYSICIAN STATEMENT I saw and evaluated the patient. I reviewed the resident's note and discussed the case with the resident. I agree with the resident's findings and plan as documented. SUBJECTIVE: Patient seen and examined in the ICU. Awake and alert. Reports some discomfort that the surgical site. Denies CP or SOB. No BM but (+) flatus Intake & Output 05/22/18 05/23/18 05/24/18 05/25/18 23:59 23:59 23:59 23:59 Intake Total 5242 394 Output Total 650 Balance 4592 394 Weight 304 lb 8 oz Last Vital Signs Temp Pulse Resp BP Pulse Ox 98.6 F 100 H 20 128/74 97 05/25/18 03:00 05/25/18 08:00 05/25/18 08:00 05/25/18 08:00 05/24/18 20:45 Active Medications Heparin Sodium (Porcine) (Heparin -) 5,000 unit SQ TID DOMINICK Last Admin: 05/25/18 05:43 Dose: 5,000 unit Lactated Ringer's (Lactated Ringers Solution) 1,000 mls @ 42 mls/hr IV ASDIR DOMINICK Last Admin: 05/24/18 21:59 Dose: Not Given Piperacillin Sod/Tazobactam (Sod 4.5 gm/ Dextrose) 100 mls @ 200 mls/hr IVPB Q8H-IV DOMINICK; Protocol Last Admin: 05/25/18 03:15 Dose: 200 mls/hr Influenza Virus Vaccine Quadrival (Flulaval Quad [id number]) 60 mcg IM .ONCE ONE Stop: 05/25/18 10:01 Lorazepam (Ativan Injection -) 0.5 mg IVPUSH ONCE PRN PRN Reason: AGITATION Last Admin: 05/24/18 23:14 Dose: 0.5 mg Morphine Sulfate (Morphine Sulfate) 2 mg IVPUSH Q4H PRN PRN Reason: PAIN LEVEL 6-10 Last Admin: 05/25/18 08:46 Dose: 2 mg Ondansetron HCl (Zofran Injection) 4 mg IVPUSH Q6H PRN PRN Reason: NAUSEA AND/OR VOMITING Last Admin: 05/24/18 22:06 Dose: 4 mg Pneumococcal 13-Valent Conj Vacc (Prevnar 13 Syringe -) 0.5 ml IM .ONCE ONE Stop: 05/25/18 10:01 GENERAL: Awake, alert, and fully oriented, in no acute distress. HEAD: Normal with no signs of trauma. EYES: Pupils equal, round and reactive to light, extraocular movements intact, sclera anicteric, conjunctiva clear. No lid lag. EARS, NOSE, THROAT: Ears normal, nares patent, oropharynx clear without exudates. Moist mucous membranes. NECK: Normal range of motion, supple without lymphadenopathy, JVD, or masses. LUNGS: Breath sounds equal, clear to auscultation bilaterally. No wheezes, and no crackles. No accessory muscle use. HEART: Regular rate and rhythm, normal S1 and S2 without murmur, rub or gallop. ABDOMEN: Soft, Mild tenderness, hypoactive bowel sounds MUSCULOSKELETAL: Normal range of motion at all joints. No bony deformities or tenderness. No CVA tenderness. UPPER EXTREMITIES: 2+ pulses, warm, well-perfused. No cyanosis. No clubbing. Cap refill <2 seconds. No peripheral edema. LOWER EXTREMITIES: 2+ pulses, warm, well-perfused. No calf tenderness. No peripheral edema. NEUROLOGICAL: Non-focal PSYCHIATRIC: Cooperative. Good eye contact. Appropriate mood and affect. SKIN: Warm, dry, normal turgor, no rashes or lesions noted. Laboratory Results - last 24 hr 05/24/18 05/24/18 05/24/18 07:50 09:47 10:03 WBC RBC Hgb Hct MCV MCH MCHC RDW Plt Count MPV Absolute Neuts (auto) Neutrophils % Lymphocytes % Monocytes % Eosinophils % Basophils % Nucleated RBC % PT with INR INR Sodium Potassium Chloride Carbon Dioxide Anion Gap BUN Creatinine Creat Clearance w eGFR Random Glucose Lactic Acid 4.2 H* Calcium Phosphorus Magnesium Total Bilirubin AST ALT Alkaline Phosphatase Total Protein Albumin Urine Color Ltyellow Urine Appearance Clear Urine pH 8.0 Ur Specific [place] 1.015 Urine Protein 2+ H Urine Glucose (UA) 1+ H Urine Ketones Trace H Urine Blood Negative Urine Nitrite Negative Urine Bilirubin Negative Urine Urobilinogen Negative Ur Leukocyte Esterase Negative Urine WBC (Auto) 2 Urine RBC (Auto) 3 Ur Epithelial Cells Rare Urine Mucus Rare Blood Type O POSITIVE 05/24/18 05/24/18 05/25/18 11:22 13:28 05:15 WBC 25.8 H RBC 3.84 Hgb 11.6 Hct 35.8 D MCV 93.3 MCH 30.3 MCHC 32.4 RDW 14.6 Plt Count 169 D MPV 9.1 Absolute Neuts (auto) 24.1 H Neutrophils % 93.1 H Lymphocytes % 1.8 L D Monocytes % 5.0 D Eosinophils % 0.0 D Basophils % 0.1 Nucleated RBC % 0 PT with INR 12.90 INR 1.09 Sodium Potassium Chloride Carbon Dioxide Anion Gap BUN Creatinine Creat Clearance w eGFR Random Glucose Lactic Acid 2.8 H* Calcium Phosphorus Magnesium Total Bilirubin AST ALT Alkaline Phosphatase Total Protein Albumin Urine Color Urine Appearance Urine pH Ur Specific [place] Urine Protein Urine Glucose (UA) Urine Ketones Urine Blood Urine Nitrite Urine Bilirubin Urine Urobilinogen Ur Leukocyte Esterase Urine WBC (Auto) Urine RBC (Auto) Ur Epithelial Cells Urine Mucus Blood Type 05/25/18 05/25/18 05:15 05:15 WBC RBC Hgb Hct MCV MCH MCHC RDW Plt Count MPV Absolute Neuts (auto) Neutrophils % Lymphocytes % Monocytes % Eosinophils % Basophils % Nucleated RBC % PT with INR INR Sodium 140 Potassium 4.1 Chloride 107 Carbon Dioxide 23 Anion Gap 10 BUN 20 H Creatinine 1.4 H Creat Clearance w eGFR 37.28 Random Glucose 172 H Lactic Acid 2.6 H* Calcium 7.6 L Phosphorus 4.6 Magnesium 1.6 L Total Bilirubin 0.9 AST 107 H ALT 76 H Alkaline Phosphatase 102 Total Protein 6.4 Albumin 2.7 L Urine Color Urine Appearance Urine pH Ur Specific [place] Urine Protein Urine Glucose (UA) Urine Ketones Urine Blood Urine Nitrite Urine Bilirubin Urine Urobilinogen Ur Leukocyte Esterase Urine WBC (Auto) Urine RBC (Auto) Ur Epithelial Cells Urine Mucus Blood Type ASSESSMENT/PLAN: POD#1: Laparoscopic Cholecystectomy Obesity Cholelithiasis Hepatic steatosis Morbid Obesity Possible OSAS Lactic acidosis ABX per ID O2 as needed Incentive Spirometry IVF PO when cleared by surgery VTE prophylaxis Floor Dr De Luna
[2018-05-25] MEDS ORDERED: PNEUMOC 13-VAL CONJ-DIP CRM/PF 0.5 ML DISP.SYRIN IM ONE (10:00)
[2018-05-25] MEDS ORDERED: FLU VACCINE QUAD 60 MCG/0.5 ML (MDV 18-19) IM ONE (10:00)
[2018-05-25 10:01] LABS: ANISOCYTOSIS 0; MACROCYTOSIS 0; PLATELET ESTIMATE NORMAL
--- NOTE | 2018-05-25 11:38 | PN ---
Progress Note (short form) - Note Progress Note: Attending Surgeon POD #1 In ICU; OOB in the chair VSS AF abdo-obese and soft; port site dressings c/d/i; BRYON serosanguinous extrems-warm and edematous WBC 25K IMP: stable s/p lap luis fernando for acute cholelcystitis PLAN: OOB/IVF/clear liquid diet/DVT prophylaxis/pulmonary toilet/IVABS Chito Benites MD FACS
--- NOTE | 2018-05-25 14:39 | PN ---
Physical Exam: SUBJECTIVE: Patient seen and examined, reports right sided abdominal pain, and bilateral shoulder pain. asking to drink liquids, burping but no gas or BM yet. OBJECTIVE: Vital Signs Period Temp Pulse Resp BP Sys/Nagel Pulse Ox Last 24 Hr 98.1 F-98.9 F 80-110 13-37 100-177/58-105 95-98 Intake & Output 05/22/18 05/23/18 05/24/18 05/25/18 23:59 23:59 23:59 23:59 Intake Total 5242 394 Output Total 650 100 Balance 4592 294 Weight 304 lb 8 oz GENERAL: The patient is awake, alert, and fully oriented, anxious but in no acute distress. HEAD: Normal with no signs of trauma. EYES: PERRL, extraocular movements intact, sclera anicteric, conjunctiva clear. No ptosis. ENT: Ears normal, nares patent, oropharynx clear without exudates, moist mucous membranes. NECK: Trachea midline, full range of motion, supple. LUNGS: Breath sounds equal, clear to auscultation bilaterally, no wheezes, no crackles, no accessory muscle use. HEART: Regular rate and rhythm, S1, S2 ABDOMEN: Soft, obese, RUQ tenderness at laparoscopic site, No voluntary or involuntary guarding or rigidity, normoactive bowel sounds EXTREMITIES: 2+ pulses, warm, well-perfused, no edema. NEUROLOGICAL: Cranial nerves II through XII grossly intact. Normal speech, gait not observed. PSYCH: Normal mood, normal affect. SKIN: Warm, dry, normal turgor, no rashes or lesions noted Laboratory Results - last 24 hr 05/25/18 05/25/18 05/25/18 05:15 05:15 05:15 WBC 25.8 H RBC 3.84 Hgb 11.6 Hct 35.8 D MCV 93.3 MCH 30.3 MCHC 32.4 RDW 14.6 Plt Count 169 D MPV 9.1 Absolute Neuts (auto) 24.1 H Neutrophils % 93.1 H Neutrophils % (Manual) 82.0 Band Neutrophils % 11.0 Lymphocytes % 1.8 L D Lymphocytes % (Manual) 2.0 L Monocytes % 5.0 D Monocytes % (Manual) 2 L Eosinophils % 0.0 D Eosinophils % (Manual) 0.0 Basophils % 0.1 Basophils % (Manual) 0.0 Myelocytes % (Man) 0 Promyelocytes % (Man) 0 Blast Cells % (Manual) 0 Nucleated RBC % 0 Metamyelocytes 2 Hypochromia 0 Platelet Estimate Normal Polychromasia 0 Poikilocytosis 0 Anisocytosis 0 Microcytosis 0 Macrocytosis 0 Sodium 140 Potassium 4.1 Chloride 107 Carbon Dioxide 23 Anion Gap 10 BUN 20 H Creatinine 1.4 H Creat Clearance w eGFR 37.28 Random Glucose 172 H Lactic Acid 2.6 H* Calcium 7.6 L Phosphorus 4.6 Magnesium 1.6 L Total Bilirubin 0.9 AST 107 H ALT 76 H Alkaline Phosphatase 102 Total Protein 6.4 Albumin 2.7 L Active Medications Generic Name Dose Route Start Last Admin Trade Name Freq PRN Reason Stop Dose Admin Heparin Sodium (Porcine) 5,000 unit 05/24/18 22:00 05/25/18 05:43 Heparin - SQ 5,000 unit TID DOMINICK Administration Lactated Ringer's 1,000 mls @ 42 mls/hr 05/24/18 19:45 05/24/18 21:59 Lactated Ringers Solution IV Not Given ASDIR DOMINICK Piperacillin Sod/Tazobactam 100 mls @ 200 mls/hr 05/25/18 03:00 05/25/18 09: 26 Sod 4.5 gm/ Dextrose IVPB 200 mls/hr Q8H-IV DOMINICK Administration Protocol Lorazepam 0.5 mg 05/24/18 18:59 05/24/18 23:14 Ativan Injection - IVPUSH 0.5 mg ONCE PRN Administration AGITATION Morphine Sulfate 2 mg 05/24/18 19:29 05/25/18 12:51 Morphine Sulfate IVPUSH 2 mg Q4H PRN Administration PAIN LEVEL 6-10 Ondansetron HCl 4 mg 05/24/18 19:29 05/24/18 22:06 Zofran Injection IVPUSH 4 mg Q6H PRN Administration NAUSEA AND/OR VOMITING Microbiology 05/24/18 13:09 Bile Gram Stain - Final 05/24/18 09:47 Urine - Urine Clean Catch Urine Culture - Final NO GROWTH OBTAINED 05/24/18 08:05 Blood - Peripheral Venous Blood Culture - Preliminary NO GROWTH OBTAINED AFTER 24 HOURS, INCUBATION TO CONTINUE FOR 4 DAYS. 05/24/18 07:50 Blood - Peripheral Venous Blood Culture - Preliminary NO GROWTH OBTAINED AFTER 24 HOURS, INCUBATION TO CONTINUE FOR 4 DAYS. ASSESSMENT/PLAN: 68 yof with PMHx of morbid obesity, cholelithiasis, hepatic steatosis admitted with acute cholecytitis with sepsis s/p lap cholecytectomy 05/24 -Acute cholecystitis with sepsis s/p lap cholecystectomy 05/24/2018 -Leucocytosis, ?Post op stress -Uncontrolled HTN, suspect from anxiety/pain, improved now -Morbid obesity -Hepatic steatosis Plan: Surgery input noted. Clear liquid diet, IVF, pain control, encourage OOB/Incentive spirometry. ID input noted. Zosyn day 2. DVTPPX heparin Dispo pending clinical improvement in next 1-2 days OOB, PT eval Agree with transfer out of ICU Plan discussed with patient and nursing in detail, all questions answered. Total critical care time spent 36 min. Visit type - Emergency Visit Emergency Visit: Yes ED Registration Date: 05/24/18 Care time: The patient presented to the Emergency Department on the above date and was hospitalized for further evaluation of their emergent condition. - New Patient This patient is new to me today: Yes Date on this admission: 05/25/18 - Critical Care Critical Care patient: Yes Total Critical Care Time (in minutes): 36 Critical Care Statement: The care of this patient involved high complexity decision making to prevent further life threatening deterioration of the patient 's condition and/or to evaluate & treat vital organ system(s) failure or risk of failure.
--- NOTE | 2018-05-25 14:53 | PN ---
Physical Exam: SUBJECTIVE: Patient seen and examined this am s/p Lap CCY POD#1. Some discomfort over the incisional sites. Denies fevers, chills, chest pain, SOB, nausea, vomiting. OBJECTIVE: Vital Signs Period Temp Pulse Resp BP Sys/Nagel Pulse Ox Last 24 Hr 98.1 F-98.9 F 80-110 13-37 100-201/58-105 95-98 GENERAL: A&Ox3, NAD HEAD: NCAT EYES: PERRL, EOMI ENT: Moist mucous membranes. NECK: Supple LUNGS: CTA b/l, no wheezes, no crackles HEART: Regular rate and rhythm, S1, S2 without murmur ABDOMEN: Obese, Soft, Mild tenderness to palpation over the Left Abdomen, nondistended, + bowel sounds, no guarding EXTREMITIES: no edema NEUROLOGICAL: Cranial nerves II through XII grossly intact. Normal speech SKIN: Warm, dry Laboratory Results - last 24 hr 05/25/18 05/25/18 05/25/18 05:15 05:15 05:15 WBC 25.8 H RBC 3.84 Hgb 11.6 Hct 35.8 D MCV 93.3 MCH 30.3 MCHC 32.4 RDW 14.6 Plt Count 169 D MPV 9.1 Absolute Neuts (auto) 24.1 H Neutrophils % 93.1 H Neutrophils % (Manual) 82.0 Band Neutrophils % 11.0 Lymphocytes % 1.8 L D Lymphocytes % (Manual) 2.0 L Monocytes % 5.0 D Monocytes % (Manual) 2 L Eosinophils % 0.0 D Eosinophils % (Manual) 0.0 Basophils % 0.1 Basophils % (Manual) 0.0 Myelocytes % (Man) 0 Promyelocytes % (Man) 0 Blast Cells % (Manual) 0 Nucleated RBC % 0 Metamyelocytes 2 Hypochromia 0 Platelet Estimate Normal Polychromasia 0 Poikilocytosis 0 Anisocytosis 0 Microcytosis 0 Macrocytosis 0 Sodium 140 Potassium 4.1 Chloride 107 Carbon Dioxide 23 Anion Gap 10 BUN 20 H Creatinine 1.4 H Creat Clearance w eGFR 37.28 Random Glucose 172 H Lactic Acid 2.6 H* Calcium 7.6 L Phosphorus 4.6 Magnesium 1.6 L Total Bilirubin 0.9 AST 107 H ALT 76 H Alkaline Phosphatase 102 Total Protein 6.4 Albumin 2.7 L Microbiology 05/24/18 13:09 Bile Gram Stain - Final 05/24/18 09:47 Urine - Urine Clean Catch Urine Culture - Final NO GROWTH OBTAINED 05/24/18 08:05 Blood - Peripheral Venous Blood Culture - Preliminary NO GROWTH OBTAINED AFTER 24 HOURS, INCUBATION TO CONTINUE FOR 4 DAYS. 05/24/18 07:50 Blood - Peripheral Venous Blood Culture - Preliminary NO GROWTH OBTAINED AFTER 24 HOURS, INCUBATION TO CONTINUE FOR 4 DAYS. Active Medications Heparin Sodium (Porcine) (Heparin -) 5,000 unit SQ TID DOMINICK Last Admin: 05/25/18 05:43 Dose: 5,000 unit Lactated Ringer's (Lactated Ringers Solution) 1,000 mls @ 42 mls/hr IV ASDIR DOMINICK Last Admin: 05/24/18 21:59 Dose: Not Given Piperacillin Sod/Tazobactam (Sod 4.5 gm/ Dextrose) 100 mls @ 200 mls/hr IVPB Q8H-IV DOMINICK; Protocol Last Admin: 05/25/18 09:26 Dose: 200 mls/hr Lorazepam (Ativan Injection -) 0.5 mg IVPUSH ONCE PRN PRN Reason: AGITATION Last Admin: 05/24/18 23:14 Dose: 0.5 mg Morphine Sulfate (Morphine Sulfate) 2 mg IVPUSH Q4H PRN PRN Reason: PAIN LEVEL 6-10 Last Admin: 05/25/18 12:51 Dose: 2 mg Ondansetron HCl (Zofran Injection) 4 mg IVPUSH Q6H PRN PRN Reason: NAUSEA AND/OR VOMITING Last Admin: 05/24/18 22:06 Dose: 4 mg ASSESSMENT/PLAN: 68 y/o F with PMHx of Obesity, Cholelithiasis, Hepatic steatosis presents with worsening abdominal pain and will be monitored in ICU s/p Laparoscopic cholecystectomy #Neuro -A&Ox3, NAD -No active issues, continue to monitor #Cardio -EKG: NSR, POSSIBLE ANTEROLATERAL INFARCT, VR 95, QTc 464 -No active issues, continue to monitor #Pulm -No active issues, continue to monitor #GI S/P Lap CCY POD#1 Transaminitis Hx of Obesity, Cholelithiasis, Hepatic steatosis -Pain Control via Morphine 2mg Q4H -Incentive spirometry -PT/OT when stable -NPO untill passing flatus; Then Clear Liquid Diet -OOB to chair -Ondansetron IV 4mg Q6H -Will need Obesity management as an outpatient #Renal WAQAR -Likely Prerenal s/p Lap CCY -Continue LR @ 42 -Avoid nephrotoxin med's -Monitor I&Os, Trend Cr #Heme -No active issues, continue to monitor #Endo Elevated blood glucose -Continue to monitor -Consider Checking A1c #ID Sepsis likely due to Acute Cholecystitis Lactic Acidosis, Improving -Afebrile however with Leukocytosis, Tachycardia -Continue Piperacillin/Tazobactam (started on 05/24) -Dr. Weems consulted -Continue LR @ 42 -Blood Urine and Bile cx pending #FEN -LR @ 42 -Replete Lytes PRN -NPO #PPx -DVT: Heparin TID, SCDs #LTD -BRYON Drain placed on 05/24 Code Status: Full code Dispo: Transfer to [facility]-Surg Visit type - Emergency Visit Emergency Visit: Yes ED Registration Date: 05/24/18 Care time: The patient presented to the Emergency Department on the above date and was hospitalized for further evaluation of their emergent condition. - New Patient This patient is new to me today: Yes Date on this admission: 05/25/18 - Critical Care Critical Care patient: Yes Total Critical Care Time (in minutes): 40 Critical Care Statement: The care of this patient involved high complexity decision making to prevent further life threatening deterioration of the patient 's condition and/or to evaluate & treat vital organ system(s) failure or risk of failure.
[2018-05-25] MEDS ORDERED: MORPHINE SULFATE 2 MG/ML VIAL IM ONE (15:43)
--- NOTE | 2018-05-25 16:30 | EKG ---
Test Reason : Blood Pressure : / mmHG Vent. Rate : 107 BPM Atrial Rate : 107 BPM P-R Int : 120 ms QRS Dur : 090 ms QT Int : 344 ms P-R-T Axes : 060 -22 006 degrees QTc Int : 459 ms SINUS TACHYCARDIA CANNOT RULE OUT ANTERIOR INFARCT (CITED ON OR BEFORE 24-MAY-2018) ABNORMAL ECG WHEN COMPARED WITH ECG OF 24-MAY-2018 08:16, NO SIGNIFICANT CHANGE WAS FOUND Confirmed by Meghann Chang ([id number]) on 05/25/2018 4:30:45 PM Referred By: Confirmed By:Meghann Chang
[2018-05-25] MEDS: LACTATED RINGERS SOLUTION 1,000 ML IV SCH ×2 (17:30→19:51)
[2018-05-25] MEDS ORDERED: PIPERACILLIN/TAZOB 4.5 GM 4.5 GM in DEXTROSE 5%-WATER 100 ML IVPB SCH (19:45)
[2018-05-25] MEDS: ALPRAZolam 0.25 MG TABLET PO PRN (21:13)
[2018-05-26] MEDS ORDERED: DEXTROSE 5%-WATER 100 ML IVPB ONE ×3 (01:05→17:22)
[2018-05-26] MEDS ORDERED: PIPERACILLIN/TAZOBACTAM 4.5 GM VIAL IVPB ONE ×3 (01:05→17:22)
[2018-05-26] MEDS: PIPERACILLIN/TAZOB 4.5 GM 4.5 GM in DEXTROSE 5%-WATER 100 ML IVPB SCH ×3 (01:19→17:40)
[2018-05-26] MEDS: MORPHINE SULFATE 2 MG/ML VIAL IVPUSH PRN ×4 (02:49→21:01)
[2018-05-26] MEDS: HEPARIN NA (PORCINE) 5,000 UNITS/ML 1ML VIAL SQ SCH ×3 (05:18→21:01)
[2018-05-26 05:56] LABS: BASO % 0.1 % (0-2.0); EOS % 0.2 % (0-4.5); HEMATOCRIT 31.9 % (32.4-45.2); HEMOGLOBIN 10.7 GM/dL (10.7-15.3); LYMPH % 5.5 % (8-40); MCH 30.8 pg (25.7-33.7); MCHC 33.6 g/dl (32.0-36.0); MEAN CELL VOLUME 91.5 fl (80-96); NEUT % 89.2 % (42.8-82.8); PLATELET COUNT 167 K/MM3 (134-434); RBC 3.48 M/mm3 (3.60-5.2); RDW 14.3 % (11.6-15.6); WHITE BLOOD COUNT 20.5 K/mm3 (4.0-10.0)
[2018-05-26 06:29] LABS: ALBUMIN 2.5 g/dl (3.4-5.0); ALK PHOS 88 U/L (45-117); ANION GAP 8 MMOL/L (8-16); BILIRUBIN,TOTAL 0.7 mg/dL (0.2-1); BLOOD UREA NITROGEN 27 mg/dL (7-18); CALCIUM 8.3 mg/dL (8.5-10.1); CHLORIDE 106 mmol/L (98-107); CO2 26 mmol/L (21-32); CREATININE 1.1 mg/dL (0.55-1.3); GLUCOSE,RANDOM 122 mg/dL (74-106); MAGNESIUM 2.4 mg/dL (1.8-2.4); PHOSPHOROUS 2.8 mg/dL (2.5-4.9); POTASSIUM 3.9 mmol/L (3.5-5.1); SGOT/AST 177 U/L (15-37); SGPT/ALT 145 U/L (13-61); SODIUM 140 mmol/L (136-145); TOT PROT 6.1 g/dl (6.4-8.2)
--- NOTE | 2018-05-26 08:54 | PN ---
Progress Note (short form) - Note Progress Note: OOB in wheelchair alert c/o RUQ pain unable to take a deep breath due to pain unable to eat Vital Signs Period Temp Pulse Resp BP Sys/Nagel Pulse Ox Last 24 Hr 98.2 F-98.9 F 82-113 13-25 117-157/62-84 96-97 cor-rrr lungs decreased bs at bases abd +BRYON drain RUQ ext no edema CBC, BMP 05/26/18 05:15 05/26/18 05:15 Microbiology 05/24/18 13:09 Bile Gram Stain - Final 05/24/18 13:09 Bile Body Fluid Culture - Preliminary Alpha Hemolytic Streptococcus 05/24/18 08:05 Blood - Peripheral Venous Blood Culture - Preliminary NO GROWTH OBTAINED AFTER 48 HOURS, INCUBATION TO CONTINUE FOR 3 DAYS. 05/24/18 07:50 Blood - Peripheral Venous Blood Culture - Preliminary NO GROWTH OBTAINED AFTER 48 HOURS, INCUBATION TO CONTINUE FOR 3 DAYS. 05/24/18 09:47 Urine - Urine Clean Catch Urine Culture - Final NO GROWTH OBTAINED a/p pod #2 s/p lap choly postop leukocytosis encourage incentive spirometry obesity continue zosyn Problem List - Problems (1) Acute cholecystitis due to biliary calculus Code(s): K80.00 - CALCULUS OF GALLBLADDER W ACUTE CHOLECYST W/O OBSTRUCTION (2) Lactic acidosis Code(s): E87.2 - ACIDOSIS
[2018-05-26] MEDS ORDERED: oxyCODONE HCL 5 MG TABLET PO PRN (08:58)
--- NOTE | 2018-05-26 09:47 | PN ---
Teaching Attending Note Name of Resident: Ben Bolton ATTENDING PHYSICIAN STATEMENT I saw and evaluated the patient. I reviewed the resident's note and discussed the case with the resident. I agree with the resident's findings and plan as documented. SUBJECTIVE: Patient seen and examined in the ICU. Awake and alert. Reports increased abdominal discomfort that feels like gas pain. Denies CP or SOB. No BM but (+) flatus Intake & Output 05/23/18 05/24/18 05/25/18 05/26/18 23:59 23:59 23:59 23:59 Intake Total 5242 1822 394 Output Total 650 980 40 Balance 4592 842 354 Weight 304 lb 8 oz Last Vital Signs Temp Pulse Resp BP Pulse Ox 98.2 F 98 H 22 H 157/82 96 05/26/18 06:00 05/26/18 08:00 05/26/18 08:00 05/26/18 08:00 05/25/18 21:00 Active Medications Alprazolam (Xanax -) 0.5 mg PO HS PRN PRN Reason: ANXIETY Last Admin: 05/25/18 21:13 Dose: 0.5 mg Heparin Sodium (Porcine) (Heparin -) 5,000 unit SQ TID DOMINICK Last Admin: 05/26/18 05:18 Dose: 5,000 unit Lactated Ringer's (Lactated Ringers Solution) 1,000 mls @ 42 mls/hr IV ASDIR DOMINICK Last Admin: 05/25/18 19:51 Dose: Not Given Piperacillin Sod/Tazobactam (Sod 4.5 gm/ Dextrose) 100 mls @ 200 mls/hr IVPB Q8H-IV DOMINICK; Protocol Last Admin: 05/26/18 09:05 Dose: 200 mls/hr Morphine Sulfate (Morphine Sulfate) 2 mg IVPUSH Q4H PRN PRN Reason: PAIN LEVEL 6-10 Last Admin: 05/26/18 09:05 Dose: 2 mg Ondansetron HCl (Zofran Injection) 4 mg IVPUSH Q6H PRN PRN Reason: NAUSEA AND/OR VOMITING Last Admin: 05/24/18 22:06 Dose: 4 mg Oxycodone HCl (Roxicodone -) 5 mg PO Q4H PRN PRN Reason: PAIN LEVEL 1-5 GENERAL: Awake, alert, and fully oriented, uncomfortable due to pain HEAD: Normal with no signs of trauma. EYES: Pupils equal, round and reactive to light, extraocular movements intact, sclera anicteric, conjunctiva clear. No lid lag. EARS, NOSE, THROAT: Ears normal, nares patent, oropharynx clear without exudates. Moist mucous membranes. NECK: Normal range of motion, supple without lymphadenopathy, JVD, or masses. LUNGS: Breath sounds equal, clear to auscultation bilaterally. No wheezes, and no crackles. No accessory muscle use. HEART: Regular rate and rhythm, normal S1 and S2 without murmur, rub or gallop. ABDOMEN: Soft, Mild tenderness, hypoactive bowel sounds MUSCULOSKELETAL: Normal range of motion at all joints. No bony deformities or tenderness. No CVA tenderness. UPPER EXTREMITIES: 2+ pulses, warm, well-perfused. No cyanosis. No clubbing. Cap refill <2 seconds. No peripheral edema. LOWER EXTREMITIES: 2+ pulses, warm, well-perfused. No calf tenderness. No peripheral edema. NEUROLOGICAL: Non-focal PSYCHIATRIC: Cooperative. Good eye contact. Appropriate mood and affect. SKIN: Warm, dry, normal turgor, no rashes or lesions noted. Laboratory Results - last 24 hr 05/25/18 05/25/18 05/26/18 05:15 16:50 05:15 WBC 20.5 H RBC 3.48 L Hgb 10.7 Hct 31.9 L MCV 91.5 MCH 30.8 MCHC 33.6 RDW 14.3 Plt Count 167 MPV 9.0 Absolute Neuts (auto) 18.3 H Neutrophils % 89.2 H Neutrophils % (Manual) 82.0 Band Neutrophils % 11.0 Lymphocytes % 5.5 L D Lymphocytes % (Manual) 2.0 L Monocytes % 5.0 Monocytes % (Manual) 2 L Eosinophils % 0.2 D Eosinophils % (Manual) 0.0 Basophils % 0.1 Basophils % (Manual) 0.0 Myelocytes % (Man) 0 Promyelocytes % (Man) 0 Blast Cells % (Manual) 0 Nucleated RBC % 0 0 Metamyelocytes 2 Hypochromia 0 Platelet Estimate Normal Polychromasia 0 Poikilocytosis 0 Anisocytosis 0 Microcytosis 0 Macrocytosis 0 Sodium Potassium Chloride Carbon Dioxide Anion Gap BUN Creatinine Creat Clearance w eGFR Random Glucose Calcium Phosphorus Magnesium Total Bilirubin AST ALT Alkaline Phosphatase Creatine Kinase Creatine Kinase Index CK-MB (CK-2) Troponin I 0.32 H Total Protein Albumin 05/26/18 05/26/18 05:15 08:08 WBC RBC Hgb Hct MCV MCH MCHC RDW Plt Count MPV Absolute Neuts (auto) Neutrophils % Neutrophils % (Manual) Band Neutrophils % Lymphocytes % Lymphocytes % (Manual) Monocytes % Monocytes % (Manual) Eosinophils % Eosinophils % (Manual) Basophils % Basophils % (Manual) Myelocytes % (Man) Promyelocytes % (Man) Blast Cells % (Manual) Nucleated RBC % Metamyelocytes Hypochromia Platelet Estimate Polychromasia Poikilocytosis Anisocytosis Microcytosis Macrocytosis Sodium 140 Potassium 3.9 Chloride 106 Carbon Dioxide 26 Anion Gap 8 BUN 27 H Creatinine 1.1 Creat Clearance w eGFR 49.25 Random Glucose 122 H Calcium 8.3 L Phosphorus 2.8 Magnesium 2.4 Total Bilirubin 0.7 AST 177 H ALT 145 H Alkaline Phosphatase 88 Creatine Kinase 188 Cancelled Creatine Kinase Index 1.5 CK-MB (CK-2) 3.0 Troponin I 0.16 H Cancelled Total Protein 6.1 L Albumin 2.5 L ASSESSMENT/PLAN: POD#2: Laparoscopic Cholecystectomy Obesity Cholelithiasis Hepatic steatosis Morbid Obesity Possible OSAS Lactic acidosis Pain control ABX per ID O2 as needed Incentive Spirometry IVF Should have formal OSAS testing after D/C PO per surgery VTE prophylaxis Floor Dr De Luna
--- NOTE | 2018-05-26 10:05 | PN ---
Progress Note (short form) - Note Progress Note: SUBJECTIVE Patient seen and examined. She is OOB and in chair. Endorsing RUQ pain that she describes as "gassy." OBJECTIVE Vital Signs Temperature 98 F 05/26/18 10:00 Pulse Rate 82 05/26/18 10:00 Respiratory Rate 18 05/26/18 10:00 Blood Pressure 158/90 05/26/18 10:00 O2 Sat by Pulse Oximetry (%) 96 05/26/18 09:00 General: Awake, alert, and fully oriented, in no acute distress Head: No signs of trauma Eyes: EOMI, sclera anicteric ENT: Moist mucus membranes Neck: Normal ROM, supple Lungs: Lungs clear, Normal breath sounds Cardio: Regular rhythm, S1 and S2 present Abdomen: Soft, tender to palpation; surgical site clean, dry, and intact Extremities: Normal range of motion, Distal pulses present SKIN: Warm, Dry, normal turgor Neurologic: Cranial nerves II through XII grossly intact. Normal speech ASSESSMENT 68 year old with PMH of obesity, cholelithiasis, and hepatic steatosis s/p laparoscopic cholecystectomy. Admitted for ICU monitoring, now POD #2. PLAN CV Elevated Tpn with downward trend -likely due to demand ischemia GI -Lap Cholecystectomy, POD #2 -Transitioned to po pain medication -LR 42cc/hr -Incentive spirometer -Advanced to clear liquids per surgery -Zosyn per ID, Day 3 ID Elevated lactate, possible due to infection -fluid hydration -downward trend -Zosyn per ID, Day 3 FEN -LR 42cc/hr -Monitor electrolytes, replete as needed -Advanced to clear liquids PPX DVT: Heparin GI: not needed at this time Disposition: Patient safe for transfer to med/surg.
--- NOTE | 2018-05-26 12:38 | PN ---
Physical Exam: SUBJECTIVE: Patient seen and examined, abdominal pain but reports decreased oral intake due to poor appetite. Reports gas. Has not passed gas or had a BM yet. OBJECTIVE: Vital Signs Period Temp Pulse Resp BP Sys/Nagel Pulse Ox Last 24 Hr 98 F-98.4 F 82-113 13-25 117-158/62-90 96-96 Intake & Output 05/23/18 05/24/18 05/25/18 05/26/18 23:59 23:59 23:59 23:59 Intake Total 5242 1822 394 Output Total 650 980 40 Balance 4592 842 354 Weight 304 lb 8 oz GENERAL: The patient is awake, alert, and fully oriented, anxious but in no acute distress. HEAD: Normal with no signs of trauma. EYES: PERRL, extraocular movements intact, sclera anicteric, conjunctiva clear. No ptosis. ENT: Ears normal, nares patent, oropharynx clear without exudates, moist mucous membranes. NECK: Trachea midline, full range of motion, supple. LUNGS: Breath sounds equal, clear to auscultation bilaterally, no wheezes, no crackles, no accessory muscle use. HEART: Regular rate and rhythm, S1, S2 ABDOMEN: Soft, obese, RUQ tenderness at laparoscopic site, No voluntary or involuntary guarding or rigidity, normoactive bowel sounds EXTREMITIES: 2+ pulses, warm, well-perfused, no edema. PSYCH: Normal mood, normal affect. SKIN: Warm, dry, normal turgor, no rashes or lesions noted Laboratory Results - last 24 hr 05/25/18 05/26/18 05/26/18 16:50 05:15 05:15 WBC 20.5 H RBC 3.48 L Hgb 10.7 Hct 31.9 L MCV 91.5 MCH 30.8 MCHC 33.6 RDW 14.3 Plt Count 167 MPV 9.0 Absolute Neuts (auto) 18.3 H Neutrophils % 89.2 H Lymphocytes % 5.5 L D Monocytes % 5.0 Eosinophils % 0.2 D Basophils % 0.1 Nucleated RBC % 0 Sodium 140 Potassium 3.9 Chloride 106 Carbon Dioxide 26 Anion Gap 8 BUN 27 H Creatinine 1.1 Creat Clearance w eGFR 49.25 Random Glucose 122 H Calcium 8.3 L Phosphorus 2.8 Magnesium 2.4 Total Bilirubin 0.7 AST 177 H ALT 145 H Alkaline Phosphatase 88 Creatine Kinase 188 Creatine Kinase Index 1.5 CK-MB (CK-2) 3.0 Troponin I 0.32 H 0.16 H Total Protein 6.1 L Albumin 2.5 L 05/26/18 08:08 WBC RBC Hgb Hct MCV MCH MCHC RDW Plt Count MPV Absolute Neuts (auto) Neutrophils % Lymphocytes % Monocytes % Eosinophils % Basophils % Nucleated RBC % Sodium Potassium Chloride Carbon Dioxide Anion Gap BUN Creatinine Creat Clearance w eGFR Random Glucose Calcium Phosphorus Magnesium Total Bilirubin AST ALT Alkaline Phosphatase Creatine Kinase Cancelled Creatine Kinase Index CK-MB (CK-2) Troponin I Cancelled Total Protein Albumin Active Medications Generic Name Dose Route Start Last Admin Trade Name Freq PRN Reason Stop Dose Admin Alprazolam 0.5 mg 05/25/18 22:00 05/25/18 21:13 Xanax - PO 0.5 mg HS PRN Administration ANXIETY Heparin Sodium (Porcine) 5,000 unit 05/24/18 22:00 05/26/18 05:18 Heparin - SQ 5,000 unit TID DOMINICK Administration Lactated Ringer's 1,000 mls @ 42 mls/hr 05/24/18 19:45 05/25/18 19:51 Lactated Ringers Solution IV Not Given ASDIR DOMINICK Piperacillin Sod/Tazobactam 100 mls @ 200 mls/hr 05/25/18 03:00 05/26/18 09: 05 Sod 4.5 gm/ Dextrose IVPB 200 mls/hr Q8H-IV DOMINICK Administration Protocol Morphine Sulfate 2 mg 05/24/18 19:29 05/26/18 09:05 Morphine Sulfate IVPUSH 2 mg Q4H PRN Administration PAIN LEVEL 6-10 Ondansetron HCl 4 mg 05/24/18 19:29 05/24/18 22:06 Zofran Injection IVPUSH 4 mg Q6H PRN Administration NAUSEA AND/OR VOMITING Oxycodone HCl 5 mg 05/26/18 08:58 Roxicodone - PO Q4H PRN PAIN LEVEL 1-5 Microbiology 05/24/18 13:09 Bile Gram Stain - Final 05/24/18 13:09 Bile Body Fluid Culture - Preliminary Alpha Hemolytic Streptococcus 05/24/18 08:05 Blood - Peripheral Venous Blood Culture - Preliminary NO GROWTH OBTAINED AFTER 48 HOURS, INCUBATION TO CONTINUE FOR 3 DAYS. 05/24/18 07:50 Blood - Peripheral Venous Blood Culture - Preliminary NO GROWTH OBTAINED AFTER 48 HOURS, INCUBATION TO CONTINUE FOR 3 DAYS. 05/24/18 09:47 Urine - Urine Clean Catch Urine Culture - Final NO GROWTH OBTAINED ASSESSMENT/PLAN: 68 yof with PMHx of morbid obesity, cholelithiasis, hepatic steatosis admitted with acute cholecytitis with sepsis s/p lap cholecytectomy 05/24 -Acute cholecystitis with sepsis s/p lap cholecystectomy 05/24/2018 -Leucocytosis, ?Post op stress -Uncontrolled HTN, suspect from anxiety/pain, improved now -Morbid obesity -Hepatic steatosis Plan: Surgery input noted. Clear liquid diet, advance per surgery. IVF, pain control, encourage OOB/ Incentive spirometry. ID input noted. Zosyn day 3, WBC improved. DVTPPX heparin Intermittent elevated BP, suspect from anxiety/pain. Hold off on standing anti- hypertensives for now. OOB, PT eval Agree with transfer out of ICU Dispo pending clinical improvement Plan discussed with patient, sister at bedside and nursing in detail, all questions answered. Total critical care time spent 36 min. Visit type - Emergency Visit Emergency Visit: Yes ED Registration Date: 05/24/18 Care time: The patient presented to the Emergency Department on the above date and was hospitalized for further evaluation of their emergent condition. - New Patient This patient is new to me today: No - Critical Care Critical Care patient: Yes Total Critical Care Time (in minutes): 36 Critical Care Statement: The care of this patient involved high complexity decision making to prevent further life threatening deterioration of the patient 's condition and/or to evaluate & treat vital organ system(s) failure or risk of failure.
[2018-05-26 12:48] LABS: ANISOCYTOSIS 0; MACROCYTOSIS 0; PLATELET ESTIMATE NORMAL
[2018-05-26] MEDS ORDERED: LACTATED RINGERS SOLUTION 1,000 ML IV SCH (19:40)
[2018-05-26] MEDS ORDERED: ONDANSETRON 4 MG/2 ML VIAL IVPUSH PRN (19:40)
--- NOTE | 2018-05-26 22:46 | PN ---
Progress Note (short form) - Note Progress Note: Attending Surgeon POD#2 Some c/o pain and gas and fatigue; tolerated clear liquid diet. VSS AF abdo-soft; port site tenderness; o/w normal; drain serosanguinous WBC-down to 20.5K bili normal IMP: doing well PLAN: Continue IVF/IVABS/drain/mobilize/follow labs. Chito Benites MD FACS
[2018-05-26] MEDS: ALPRAZolam 0.25 MG TABLET PO PRN (23:39)
[2018-05-27] MEDS ORDERED: DEXTROSE 5%-WATER 100 ML IVPB ONE ×3 (01:31→17:29)
[2018-05-27] MEDS ORDERED: PIPERACILLIN/TAZOBACTAM 4.5 GM VIAL IVPB ONE ×3 (01:31→17:29)
[2018-05-27] MEDS: PIPERACILLIN/TAZOB 4.5 GM 4.5 GM in DEXTROSE 5%-WATER 100 ML IVPB SCH ×3 (01:32→17:33)
[2018-05-27] MEDS: MORPHINE SULFATE 2 MG/ML VIAL IVPUSH PRN (02:35)
[2018-05-27] MEDS ORDERED: MORPHINE SULFATE 2 MG/ML VIAL IVPUSH ONE (03:21)
[2018-05-27 06:10] LABS: BASO % 0.2 % (0-2.0); HEMATOCRIT 32.8 % (32.4-45.2); LYMPH % 7.1 % (8-40); MCH 30.7 pg (25.7-33.7); MCHC 33.5 g/dl (32.0-36.0); MEAN CELL VOLUME 91.8 fl (80-96); MEAN PLT VOLUME 9.2 fl (7.5-11.1); MONO % 5.1 % (3.8-10.2); NEUT % 86.6 % (42.8-82.8); PLATELET COUNT 161 K/MM3 (134-434); RBC 3.57 M/mm3 (3.60-5.2); RDW 14.5 % (11.6-15.6); WHITE BLOOD COUNT 15.7 K/mm3 (4.0-10.0)
[2018-05-27] MEDS: HEPARIN NA (PORCINE) 5,000 UNITS/ML 1ML VIAL SQ SCH ×3 (06:11→22:08)
[2018-05-27 06:20] LABS: BLOOD UREA NITROGEN 24 mg/dL (7-18); GLUCOSE,RANDOM 122 mg/dL (74-106)
[2018-05-27 06:21] LABS: ALBUMIN 2.5 g/dl (3.4-5.0); ALK PHOS 95 U/L (45-117); ANION GAP 7 MMOL/L (8-16); BILIRUBIN,TOTAL 1.1 mg/dL (0.2-1); CALCIUM 8.1 mg/dL (8.5-10.1); CHLORIDE 106 mmol/L (98-107); CO2 27 mmol/L (21-32); MAGNESIUM 2.5 mg/dL (1.8-2.4); PHOSPHOROUS 2.2 mg/dL (2.5-4.9); POTASSIUM 3.9 mmol/L (3.5-5.1); SGOT/AST 95 U/L (15-37); SGPT/ALT 134 U/L (13-61); SODIUM 140 mmol/L (136-145); TOT PROT 6.2 g/dl (6.4-8.2)
[2018-05-27] MEDS ORDERED: NAPH,MB-DB/K PH,MBDB POWDER PACKET PO ONE (07:59)
[2018-05-27] MEDS ORDERED: PT OWN MED DRAWER 7, Y5N ONE ×2 (08:30→13:27)
--- NOTE | 2018-05-27 09:11 | PN ---
Progress Note (short form) - Note Progress Note: alert in bed still with abdominal pain RUQ no flatus not eating- doesn't like the food Vital Signs Period Temp Pulse Resp BP Sys/Nagel Pulse Ox Last 24 Hr 97.5 F-98.8 F 75-88 18-22 123-168/67-90 96-98 cor-rrr lungs decreased bs at bases abd soft, ext no edema CBC, BMP 05/27/18 05:15 05/27/18 05:15 Microbiology 05/24/18 13:09 Bile Gram Stain - Final 05/24/18 13:09 Bile Body Fluid Culture - Preliminary Streptococcus Equinis 05/24/18 08:05 Blood - Peripheral Venous Blood Culture - Preliminary NO GROWTH OBTAINED AFTER 72 HOURS, INCUBATION TO CONTINUE FOR 2 DAYS. 05/24/18 07:50 Blood - Peripheral Venous Blood Culture - Preliminary NO GROWTH OBTAINED AFTER 72 HOURS, INCUBATION TO CONTINUE FOR 2 DAYS. 05/24/18 09:47 Urine - Urine Clean Catch Urine Culture - Final NO GROWTH OBTAINED a/p pod #3 s/p lap choly postop leukocytosis encourage incentive spirometry obesity continue zosyn f/u cultures -awaiting final cultures to taper antiibotics Problem List - Problems (1) Acute cholecystitis due to biliary calculus Code(s): K80.00 - CALCULUS OF GALLBLADDER W ACUTE CHOLECYST W/O OBSTRUCTION (2) Lactic acidosis Code(s): E87.2 - ACIDOSIS
--- NOTE | 2018-05-27 09:59 | PN ---
Progress Note, Physician Chief Complaint: Pt sitting in wheelchair in no acute distress. Tolerating clears. pain controlled. denies any chest pain, sob, n/v/d - Current Medication List Current Medications: Active Medications Alprazolam (Xanax -) 0.5 mg PO HS PRN PRN Reason: ANXIETY Last Admin: 05/26/18 23:39 Dose: 0.5 mg Heparin Sodium (Porcine) (Heparin -) 5,000 unit SQ TID DOMINICK Last Admin: 05/27/18 06:11 Dose: 5,000 unit Lactated Ringer's (Lactated Ringers Solution) 1,000 mls @ 42 mls/hr IV ASDIR DOMINICK Last Admin: 05/26/18 21:00 Dose: 42 mls/hr Piperacillin Sod/Tazobactam (Sod 4.5 gm/ Dextrose) 100 mls @ 200 mls/hr IVPB Q8H-IV DOMINICK; Protocol Last Admin: 05/27/18 01:32 Dose: 200 mls/hr Morphine Sulfate (Morphine Sulfate) 2 mg IVPUSH Q4H PRN PRN Reason: PAIN LEVEL 6-10 Last Admin: 05/27/18 02:35 Dose: 2 mg Ondansetron HCl (Zofran Injection) 4 mg IVPUSH Q6H PRN PRN Reason: NAUSEA AND/OR VOMITING Oxycodone HCl (Roxicodone -) 5 mg PO Q4H PRN PRN Reason: PAIN LEVEL 1-5 - Objective Vital Signs: Vital Signs Temperature 97.5 F L 05/27/18 08:00 Pulse Rate 77 05/27/18 08:00 Respiratory Rate 19 05/27/18 08:00 Blood Pressure 157/86 05/27/18 08:00 O2 Sat by Pulse Oximetry (%) 98 05/27/18 08:00 Constitutional: Yes: Well Nourished, No Distress, Calm, Obese Cardiovascular: Yes: Regular Rate and Rhythm Respiratory: Yes: WNL, Regular, CTA Bilaterally. No: Accessory Muscle Use, SOB , Tachypnea, Wheezes Gastrointestinal: Yes: Soft, Abdomen, Obese, Hypoactive Bowel Sounds. No: Distention, Tenderness, Vomiting Genitourinary: Yes: WNL Extremities: Yes: WNL Edema: No Integumentary: Yes: Incision Wound/Incision: Yes: Dressing Dry and Intact Neurological: Yes: WNL, Alert, Oriented Psychiatric: Yes: WNL, Alert, Oriented Labs: CBC, BMP 05/27/18 05:15 05/27/18 05:15 INR, PTT INR 1.09 (0.83-1.09) 05/24/18 13:28 Assessment/Plan (1) S/P cholecystectomy Assessment/Plan: POD-3 pt denies flatus/bm tolerating clears pain controlled ambulate as tolerated, continue PT IS 10x/hr bowel regimen surgery following Code(s): Z90.49 - ACQUIRED ABSENCE OF OTHER SPECIFIED PARTS OF DIGESTIVE TRACT (2) Sepsis Assessment/Plan: improved zosyn day 4 urine/blood cultures neg biliary fluid- growing strep ID following Code(s): A41.9 - SEPSIS, UNSPECIFIED ORGANISM (3) Acute cholecystitis due to biliary calculus Assessment/Plan: as above Code(s): K80.00 - CALCULUS OF GALLBLADDER W ACUTE CHOLECYST W/O OBSTRUCTION (4) Lactic acidosis Assessment/Plan: resolved Code(s): E87.2 - ACIDOSIS (5) Leukocytosis Assessment/Plan: improving trend Code(s): D72.829 - ELEVATED WHITE BLOOD CELL COUNT, UNSPECIFIED Qualifiers: Leukocytosis type: bandemia Qualified Code(s): D72.825 - Bandemia (6) Elevated blood pressure reading without diagnosis of hypertension Assessment/Plan: improved Code(s): R03.0 - ELEVATED BLOOD-PRESSURE READING, W/O DIAGNOSIS OF HTN (7) Obesity Assessment/Plan: recommend outpt management by PCP Code(s): E66.9 - OBESITY, UNSPECIFIED Qualifiers: Obesity type: due to excess calories Obesity classification: adult class 3 (BMI >= 40) Body mass index: BMI 45.0-49.9 (8) Elevated troponin Assessment/Plan: post op- had chest heaviness, no asymptomatic troponin peaked echo pending chest cta ordered- r/o aortic dissection stress test prior to d/c cardiology following Code(s): R74.8 - ABNORMAL LEVELS OF OTHER SERUM ENZYMES (9) Hypophosphatemia Assessment/Plan: mild repleted monitor level Code(s): E83.39 - OTHER DISORDERS OF PHOSPHORUS METABOLISM (10) Transaminitis Assessment/Plan: improving tbilli elevated today trend Code(s): R74.0 - NONSPEC ELEV OF LEVELS OF TRANSAMNS & LACTIC ACID DEHYDRGNSE 40 minutes spent in reviewing chart, formulating plan. Agree w/ ICU attending's plan. Agree with d/c from ICU to floor
--- NOTE | 2018-05-27 10:22 | CON.CARD ---
Consult Consult Specialty:: cardio - History of Present Illness Chief Complaint: cholecystitis History of Present Illness: 68 F here with acute cholecystitis, s/p lap luis fernando. BP initially difficult to control pt denies chest discomfort or sob at any time. only pleuritic pain in RUQ causing splinting. notes describe upper back/shoulder pain postop. per d/w ICU resident team today, on 05/25 pt reported upper chest heaviness transiently postop PMH: obesity hepatic steatosis no cigs poor medical f/u - Past Medical History Gastrointestinal: Yes: Diverticulosis Hepatobiliary: Yes: Cholelithiasis, Other (Hepatic steatosis) - Past Surgical History Past Surgical History: Yes: Colonoscopy - Alcohol/Substance Use Hx Alcohol Use: No History of Substance Use: reports: None - Smoking History Smoking history: Never smoked Have you smoked in the past 12 months: No - Social History ADL: Independent Home Medications - Allergies Allergies/Adverse Reactions: Allergies Allergy/AdvReac Type Severity Reaction Status Date / Time ephedrine AdvReac Verified 05/24/18 13:54 - Home Medications Home Medications: Ambulatory Orders Aspirin [ASA -] 325 mg PO DAILY PRN 05/24/18 Family Disease History - Family Disease History Family Disease History: Diabetes: Father, Heart Disease: Father, Mother Vital Signs: Vital Signs Temperature 97.5 F L 05/27/18 08:00 Pulse Rate 77 05/27/18 08:00 Respiratory Rate 19 05/27/18 08:00 Blood Pressure 157/86 05/27/18 08:00 O2 Sat by Pulse Oximetry (%) 98 05/27/18 08:00 Constitutional: Yes: Well Nourished, No Distress, Obese Eyes: No: Sclera Icterus HENT: No: Nasal Congestion Neck: No: Decreased ROM Respiratory: Yes: CTA Bilaterally, Rales (bases). No: Accessory Muscle Use, Wheezes Gastrointestinal: Yes: Normal Bowel Sounds. No: Distention, Hepatomegaly, Palpable Mass, Tenderness Cardiovascular: Yes: Regular Rate and Rhythm JVD: No Carotid Bruit: No PMI: Non-Displaced Heart Sounds: Yes: S1, S2. No: Gallop Murmur: No: Systolic Murmur, Diastolic Murmur Musculoskeletal: Yes: Other (No kyphosis) Extremities: No: Cold, Cyanosis Edema: Yes (1+ ankles) Peripheral Pulses: 2+ Left Carotid, 2+ Right Carotid, 2+ Left Doralis Pedis, 2+ Right Dorsalis Pedis Integumentary: No: Jaundice Neurological: Yes: Alert, Oriented (x3) Psychiatric: No: Agitated - Other Data Labs, Other Data: CBC, BMP 05/27/18 05:15 05/27/18 05:15 INR, PTT INR 1.09 (0.83-1.09) 05/24/18 13:28 Laboratory Tests 05/24/18 05/25/18 05/26/18 07:50 16:50 05:15 WBC Hgb Plt Count Sodium Potassium Carbon Dioxide BUN Creatinine AST ALT Troponin I 0.02 0.32 H 0.16 H 05/27/18 05/27/18 05:15 05:15 WBC 15.7 H Hgb 11.0 Plt Count 161 Sodium 140 Potassium 3.9 Carbon Dioxide 27 BUN 24 H Creatinine 1.0 AST 95 H ALT 134 H Troponin I Assessment/Plan ECG 05/24: NSR, WNL (no priors) ECG 05/25: NSR, nonsp ST's anterior leads CXR: widened mediastinum. clear lungs/pleura tele: sinus with tachy acute cholecystitis, s/p lap luis fernando: -per surgery -LFTs trending down from peak elevated troponin, chest heaviness: -reported chest heaviness transiently on POD #1 in ICU -trop indeterminate range, fairly flat trend (0.02-0.3-0.1). ECG on day of trop peak with nonspecific ST changes -rec echo for LV function -given pt's obesity with poor medical f/u previously, elevated glucoses here, and cannot exclude transient acute ischemia postop, will likely do stress test prior to discharge to risk stratify (pharm MPI). -widened mediastinum on CXR, widely fluctuating BP initially here. rec CT chest to r/o dissection -clinical picture not suggestive of PE, given sx's and biomarkers occured in immediate postop period and no signif respiratory perturbations at that time. if RV not abnormal on echo, would not pursue PE w/u unless clinical picture changes - -A1c, lipid panel ordered -observe for ischemic sx's -would not aggresively treat for ACS in light of equivocal biomarkers and no clinical sx's of acute cardiac process HTN: -presently controlled -same plan disc'd plan with ICU team
--- NOTE | 2018-05-27 10:33 | PN ---
Progress Note (short form) - Note Progress Note: 68yo F s/p lap luis fernando, pt seen and examined in ICU. Pt states that she continues to have RUQ pain, but is tolerating clears. Pt denies fever, chills, n/v. Pt ambulated with PT, but complains of pain with ambulating. Last Vital Signs Temp Pulse Resp BP Pulse Ox 97.5 F L 77 19 157/86 98 05/27/18 08:00 05/27/18 08:00 05/27/18 08:00 05/27/18 08:00 05/27/18 08:00 CBC, BMP 05/27/18 05:15 05/27/18 05:15 PE: Gen: A&O x 3 Resp: breathing comfortably Abd: soft, mild RUQ tenderness, nondistended, drain in place with serosanguinous drainage, incisions clean with no erythema or discharge. Problem List - Problems (1) Acute cholecystitis due to biliary calculus Assessment/Plan: Plan -adv diet to regular -encourage OOB/ambulate -cleared from surgical standpoint for floor bed -pain control -DVT/GI ppx Code(s): K80.00 - CALCULUS OF GALLBLADDER W ACUTE CHOLECYST W/O OBSTRUCTION
--- NOTE | 2018-05-27 12:00 | PN ---
Teaching Attending Note Name of Resident: Rebecca Ho ATTENDING PHYSICIAN STATEMENT I saw and evaluated the patient. I reviewed the resident's note and discussed the case with the resident. I agree with the resident's findings and plan as documented. SUBJECTIVE: Pt seen and examined in the ICU. Pain controlled with current regimen. No fevers or chills. No nausea. OBJECTIVE: Vital Signs Period Temp Pulse Resp BP Sys/Nagel Pulse Ox Last 24 Hr 97.5 F-98.8 F 75-88 18-22 123-168/67-90 96-98 Intake & Output 05/24/18 05/25/18 05/26/18 05/27/18 23:59 23:59 23:59 23:59 Intake Total 5242 1822 2048 884 Output Total 650 980 75 5 Balance 4592 842 1973 879 Weight 138.119 kg 137.892 kg Gen: NAD in chair Heart: RRR Lung: decreased breath sounds at the bases Abd: soft, nontender Ext: no edema CBC, BMP 05/27/18 05:15 05/27/18 05:15 Active Medications Alprazolam (Xanax -) 0.5 mg PO HS PRN PRN Reason: ANXIETY Last Admin: 05/26/18 23:39 Dose: 0.5 mg Heparin Sodium (Porcine) (Heparin -) 5,000 unit SQ TID DOMINICK Last Admin: 05/27/18 06:11 Dose: 5,000 unit Lactated Ringer's (Lactated Ringers Solution) 1,000 mls @ 42 mls/hr IV ASDIR DOMINICK Last Admin: 05/26/18 21:00 Dose: 42 mls/hr Piperacillin Sod/Tazobactam (Sod 4.5 gm/ Dextrose) 100 mls @ 200 mls/hr IVPB Q8H-IV DOMINICK; Protocol Last Admin: 05/27/18 01:32 Dose: 200 mls/hr Morphine Sulfate (Morphine Sulfate) 2 mg IVPUSH Q4H PRN PRN Reason: PAIN LEVEL 6-10 Last Admin: 05/27/18 02:35 Dose: 2 mg Ondansetron HCl (Zofran Injection) 4 mg IVPUSH Q6H PRN PRN Reason: NAUSEA AND/OR VOMITING Oxycodone HCl (Roxicodone -) 5 mg PO Q4H PRN PRN Reason: PAIN LEVEL 1-5 ASSESSMENT AND PLAN: Cholelithiasis s/p Laparoscopic Cholecystectomy Morbid Obesity Hepatic steatosis Likely ANGELIC Lactic acidosis - pain control - incentive spirometry - monitor fever curve, WBC trend - PO per surgery - DVT prophylaxis - PSG as outpt - can monitor on floor
[2018-05-27] MEDS ORDERED: MORPHINE SULFATE 2 MG/ML VIAL IVPUSH PRN (12:09)
[2018-05-27] MEDS ORDERED: oxyCODONE HCL 5 MG TABLET PO PRN ×3 (12:09→15:15)
[2018-05-27] MEDS: DOCUSATE SODIUM 100 MG CAPSULE (FP) PO SCH (13:30)
--- NOTE | 2018-05-27 15:06 | PN ---
Physical Exam: SUBJECTIVE: Patient seen and examined this am s/p Lap CCY. No new complaints. No acute overnight events. OBJECTIVE: Vital Signs Period Temp Pulse Resp BP Sys/Nagel Pulse Ox Last 24 Hr 97.5 F-98.8 F 75-87 18-22 123-159/67-90 96-98 GENERAL: A&Ox3, NAD HEAD: NCAT EYES: PERRL, EOMI ENT: Moist mucous membranes NECK: Supple LUNGS: CTA b/l, no wheezes, no crackles HEART: Regular rate and rhythm, S1, S2 without murmur ABDOMEN: Obese, Soft, nontender, nondistended, + bowel sounds, no guarding EXTREMITIES: no edema NEUROLOGICAL: Cranial nerves II through XII grossly intact. Normal speech SKIN: Warm, dry Laboratory Results - last 24 hr 05/27/18 05/27/18 05/27/18 05:15 05:15 10:40 WBC 15.7 H RBC 3.57 L Hgb 11.0 Hct 32.8 MCV 91.8 MCH 30.7 MCHC 33.5 RDW 14.5 Plt Count 161 MPV 9.2 Absolute Neuts (auto) 13.6 H Neutrophils % 86.6 H Lymphocytes % 7.1 L D Monocytes % 5.1 Eosinophils % 1.0 D Basophils % 0.2 Nucleated RBC % 0 Sodium 140 Potassium 3.9 Chloride 106 Carbon Dioxide 27 Anion Gap 7 L BUN 24 H Creatinine 1.0 Creat Clearance w eGFR 54.97 Random Glucose 122 H Lactic Acid 0.8 Calcium 8.1 L Phosphorus 2.2 L Magnesium 2.5 H Total Bilirubin 1.1 H AST 95 H ALT 134 H Alkaline Phosphatase 95 Total Protein 6.2 L Albumin 2.5 L Microbiology 05/24/18 13:09 Bile Gram Stain - Final 05/24/18 13:09 Bile Body Fluid Culture - Final Streptococcus Equinis 05/24/18 13:09 Bile Anaerobic Culture - Final NO ANAEROBES WERE ISOLATED 05/24/18 08:05 Blood - Peripheral Venous Blood Culture - Preliminary NO GROWTH OBTAINED AFTER 72 HOURS, INCUBATION TO CONTINUE FOR 2 DAYS. 05/24/18 07:50 Blood - Peripheral Venous Blood Culture - Preliminary NO GROWTH OBTAINED AFTER 72 HOURS, INCUBATION TO CONTINUE FOR 2 DAYS. 05/24/18 09:47 Urine - Urine Clean Catch Urine Culture - Final NO GROWTH OBTAINED Active Medications Alprazolam (Xanax -) 0.5 mg PO HS PRN PRN Reason: ANXIETY Last Admin: 05/26/18 23:39 Dose: 0.5 mg Docusate Sodium (Colace -) 300 mg PO DAILY [facility] Last Admin: 05/27/18 13:30 Dose: 300 mg Heparin Sodium (Porcine) (Heparin -) 5,000 unit SQ TID [facility] Last Admin: 05/27/18 13:43 Dose: 5,000 unit Piperacillin Sod/Tazobactam (Sod 4.5 gm/ Dextrose) 100 mls @ 200 mls/hr IVPB Q8H-IV DOMINICK; Protocol Last Admin: 05/27/18 10:32 Dose: 200 mls/hr Morphine Sulfate (Morphine Sulfate) 2 mg IVPUSH Q4H PRN PRN Reason: PAIN LEVEL 7 - 10 Last Admin: 05/27/18 13:28 Dose: 2 mg Ondansetron HCl (Zofran Injection) 4 mg IVPUSH Q6H PRN PRN Reason: NAUSEA AND/OR VOMITING Oxycodone HCl (Roxicodone -) 5 mg PO Q4H PRN PRN Reason: PAIN LEVEL 4 - 6 Oxycodone HCl (Roxicodone -) 2.5 mg PO Q4H PRN PRN Reason: PAIN LEVEL 1 - 3 Polyethylene Glycol (Miralax (For Daily Use) -) 17 gm PO DAILY [facility] ASSESSMENT/PLAN: 68 y/o F with PMHx of Obesity, Cholelithiasis, Hepatic steatosis presents with worsening abdominal pain and will be monitored in ICU s/p Laparoscopic cholecystectomy #Neuro -A&Ox3, NAD -No active issues, continue to monitor #Cardio Troponemia, Likely due to demand ischemia -EKG: SINUS TACHYCARDIA, VR 107, Qtc 459 -Trops Trending down -Dr. Liu consulted, Appreciate Rec's, Will need Stress test prior to D/C -Echo, A1c, Lipid panel pending -CTA: Aortic tortuosity. No definitive evidence of aneurysm or dissection. Small right pleural effusion posteriorly. Bilateral posterior atelectatic changes in right upper lobe posterior pleural changes. Status post cholecystectomy #Pulm -No active issues, continue to monitor #GI S/P Lap CCY POD#3 Transaminitis, Improving Hx of Obesity, Cholelithiasis, Hepatic steatosis -Pain Control via Morphine, Oxycodone -Incentive spirometry -PT/OT when stable -OOB to chair -Ondansetron IV 4mg Q6H -Will need Obesity management as an outpatient #Renal WAQAR, Resolved -Avoid nephrotoxin med's -Monitor I&Os, Trend Cr #Heme -No active issues, continue to monitor #Endo Elevated blood glucose -Continue to monitor -A1c pending #ID Sepsis likely due to Acute Cholecystitis Lactic Acidosis, Improving -Continue Piperacillin/Tazobactam (started on 05/24) -Dr. Weems consulted -Blood Urine and Bile cx pending #FEN -PO Fluids -Replete Lytes PRN -Regular diet #PPx -DVT: Heparin TID, SCDs Code Status: Full code Dispo: Transfer to med-Surg Visit type - Emergency Visit Emergency Visit: Yes ED Registration Date: 05/24/18 Care time: The patient presented to the Emergency Department on the above date and was hospitalized for further evaluation of their emergent condition. - New Patient This patient is new to me today: No - Critical Care Critical Care patient: Yes Total Critical Care Time (in minutes): 36 Critical Care Statement: The care of this patient involved high complexity decision making to prevent further life threatening deterioration of the patient 's condition and/or to evaluate & treat vital organ system(s) failure or risk of failure.
--- NOTE | 2018-05-27 15:57 | ECHO ---
Name: CHUY BALES Exam:Adult Echocardiogram Study Date: 05/27/2018 02:38 PM Age: 68 yrs Reason For Study: ELEVATED TROPONIN Height: 64 in Weight: 304 lb BSA: 2.3 m2 MMode/2D Measurements & Calculations IVSd: 1.0 cm Ao root diam: 2.9 cm LVIDd: 5.0 cm LA dimension: 3.0 cm LVIDs: 3.6 cm LVPWd: 1.0 cm EDV(Teich): 117.2 ml TAPSE: 2.3 cm ESV(Teich): 56.0 ml Doppler Measurements & Calculations MV E max florencio: 72.2 cm/sec Ao V2 max: 151.3 cm/sec MV A max florencio: 125.2 cm/sec Ao max P.2 mmHg MV E/A: 0.58 MV dec time: 0.17 sec LV V1 max P.2 mmHg TR max florencio: 283.9 cm/sec LV V1 max: 74.0 cm/sec TR max P.0 mmHg Med Peak E' Florencio: 5.3 cm/sec Med E/e': 13.6 Lat Peak E' Florencio: 8.2 cm/sec Lat E/e': 8.8 Procedure A complete two-dimensional transthoracic echocardiogram was performed (2D, M-mode, Doppler and color flow Doppler). Technically limited study. Left Ventricle The left ventricle is normal in size. Left ventricular systolic function is normal. Ejection Fraction = 60- 65%. Grade I diastolic dysfunction, (abnormal relaxation pattern). Ratio E/E'= 13. No regional wall m otion abnormalities noted. Right Ventricle The right ventricle is normal size. The right ventricular systolic function is normal. RV systolic TD I is 12 cm/s. Atria The left atrial size is normal. Right atrial size is normal. Mitral Valve There is moderate mitral annular calcification. There is trace to mild mitral regurgitation. Tricuspid Valve The tricuspid valve is normal in structure and function. There is mild to moderate tricuspid regurgit ation. Pulmonary artery systolic pressure is at least 49 mmHg assuming RA pressure is estimated 3 mmHg (IVC was not visualized to assess exact RA pressure). Aortic Valve There is mild aortic sclerosis.;. No aortic regurgitation is present. Pulmonic Valve The pulmonic valve is not well visualized. Mild pulmonic valvular regurgitation. Great Vessels The aortic root is normal size. Pericardium/Pleura There is no pericardial effusion. Interpretation Summary Technically limited study The left ventricle is normal in size. Left ventricular systolic function is normal. No regional wall motion abnormalities noted. Ejection Fraction = 60-65%. Grade I diastolic dysfunction, (abnormal relaxation pattern). Ratio E/E'= 13 The right ventricular systolic function is normal. The left atrial size is normal. Right atrial size is normal. There is moderate mitral annular calcification. There is trace to mild mitral regurgitation. There is mild to moderate tricuspid regurgitation. Pulmonary artery systolic pressure is at least 49 mmHg assuming RA pressure is estimated 3 mmHg (IVC was not visualized to assess exact RA pressure) There is mild aortic sclerosis. Mild pulmonic valvular regurgitation. There is no pericardial effusion. Previous study is not available for comparison Mikey Pierre MD 05/27/2018 03:57 PM
[2018-05-27] MEDS ORDERED: ONDANSETRON 4 MG/2 ML VIAL IVPUSH PRN (16:20)
[2018-05-27] MEDS: POLYETHYLENE GLYCOL 3350 119 GM BTL PO SCH (16:27)
[2018-05-27] MEDS: oxyCODONE HCL 5 MG TABLET PO PRN ×2 (17:47→23:20)
[2018-05-27] MEDS: ALPRAZolam 0.25 MG TABLET PO PRN (23:20)
[2018-05-28] MEDS: PIPERACILLIN/TAZOB 4.5 GM 4.5 GM in DEXTROSE 5%-WATER 100 ML IVPB SCH ×5 (02:21→20:32)
[2018-05-28] MEDS ORDERED: PIPERACILLIN/TAZOBACTAM 4.5 GM VIAL IVPB ONE ×3 (03:13→17:22)
[2018-05-28] MEDS ORDERED: DEXTROSE 5%-WATER 100 ML IVPB ONE ×3 (03:14→17:22)
[2018-05-28] MEDS: oxyCODONE HCL 5 MG TABLET PO PRN ×3 (05:01→20:10)
[2018-05-28] MEDS: HEPARIN NA (PORCINE) 5,000 UNITS/ML 1ML VIAL SQ SCH ×3 (06:42→21:03)
[2018-05-28 06:49] LABS: BASO % 0.5 % (0-2.0); EOS % 1.8 % (0-4.5); HEMATOCRIT 33.9 % (32.4-45.2); HEMOGLOBIN 11.5 GM/dL (10.7-15.3); LYMPH % 12.3 % (8-40); MCH 31.3 pg (25.7-33.7); MEAN PLT VOLUME 9.1 fl (7.5-11.1); MONO % 6.9 % (3.8-10.2); NEUT % 78.5 % (42.8-82.8); PLATELET COUNT 177 K/MM3 (134-434); RBC 3.69 M/mm3 (3.60-5.2); RDW 13.9 % (11.6-15.6); WHITE BLOOD COUNT 12.3 K/mm3 (4.0-10.0)
[2018-05-28 07:23] LABS: ALBUMIN 2.5 g/dl (3.4-5.0); BILIRUBIN,DIRECT 0.8 mg/dL (0.0-0.2); BILIRUBIN,TOTAL 1.2 mg/dL (0.2-1); CHOLESTEROL 137 mg/dL (50-200); HDL CHOLESTEROL 32 mg/dL (40-60); TOT PROT 6.6 g/dl (6.4-8.2); TRIGLYCERIDES 178 mg/dL (0-150)
[2018-05-28 07:25] LABS: ALBUMIN 2.5 g/dl (3.4-5.0); ALK PHOS 115 U/L (45-117); ANION GAP 9 MMOL/L (8-16); BILIRUBIN,TOTAL 1.1 mg/dL (0.2-1); BLOOD UREA NITROGEN 21 mg/dL (7-18); CALCIUM 8.4 mg/dL (8.5-10.1); CHLORIDE 107 mmol/L (98-107); CO2 25 mmol/L (21-32); CREATININE 0.9 mg/dL (0.55-1.3); GLUCOSE,RANDOM 119 mg/dL (74-106); MAGNESIUM 2.3 mg/dL (1.8-2.4); PHOSPHOROUS 2.3 mg/dL (2.5-4.9); POTASSIUM 3.8 mmol/L (3.5-5.1); SGOT/AST 43 U/L (15-37); SGPT/ALT 97 U/L (13-61); SODIUM 140 mmol/L (136-145); TOT PROT 6.5 g/dl (6.4-8.2)
--- NOTE | 2018-05-28 07:54 | OP ---
DATE OF OPERATION: 05/24/2018 PREOPERATIVE DIAGNOSES: Acute cholecystitis and cholelithiasis. POSTOPERATIVE DIAGNOSES: Gangrenous cholecystitis and cholelithiasis. PROCEDURE: Laparoscopic cholecystectomy. SURGEON: Chito Benites MD TWISTER TENDER: Mahendra Frias PA-C/Dayan Cantu PA-C ANESTHESIA: General. OPERATIVE FINDINGS: There was acute gangrenous cholecystitis and cholelithiasis with too numerous to count, small- and medium-size gallstones. The rest of the findings showed surrounding phlegmon around the bladder, and the rest of the findings were unremarkable. PROCEDURE: The patient was placed on the operating table in the supine position and after the induction of general anesthesia the patient's abdomen was prepped with ChloraPrep and draped in sterile fashion. A timeout was taken and pneumoperitoneum established above the umbilicus using a Veress needle. Once 15 mmHg of pressure were obtained, a 5-mm port was placed at the umbilicus and additional lateral 5-mm ports and a subxiphoid 12-mm port. Laparoscopy was carried out and the previously noted findings were observed. Dissection was begun at the neck of the gallbladder where the peritoneum was opened medially and laterally using blunt dissection and electrocautery. The cystic duct was identified coursing from the neck of the gallbladder towards the common bile duct and it was dissected using blunt dissection proximally and distally for length. The artery was identified cousing onto the gallbladder and appeared to be thrombosed. A critical view of safety was taken and then the duct was clipped twice proximally and twice distally with large hemoclips. The duct and was then divided using Endoshears. Hemostasis was checked for and noted to be good and then the gallbladder was removed from the liver bed in a retrograde fashion using electrocautery. Prior to removal from the edge of the liver, hemostasis in the liver bed was again checked for and noted to be good and then the gallbladder removed from the edge of the liver, placed in an EndoCatch , and brought out through the subxiphoid port. Pneumoperitoneum was reestablished. Copious irrigation was carried out with saline. Hemostasis was verified again. A 10-mm Emerson-Gan drain was placed in the right hepatorenal fossa and brought out through 1 of the 5-mm ports and secured to the skin with 2-0 silk suture. All port sites were removed under laparoscopic vision without evidence of bleeding from the port sites. The port sites were infiltrated with 0.5% Marcaine and the skin edges reapproximated with 4-0 Biosyn in a subcuticular continuous fashion. Steri-Strips and Band-Aid dressings were placed. The drain was connected to bulb suction and then the patient aroused from general anesthesia and transferred to the postanesthesia care unit in stable condition, awake and alert. ESTIMATED BLOOD LOSS: 100 mL. REPLACEMENT: Crystalloid. DRAINS: One 10-mm Emerson-Gan in the gallbladder fossa. SPECIMEN: Gallbladder and contents to Pathology. I, Chito Benites, was physically present in the operating room from the time the patient was placed on the operating table until she was transferred to the postanesthesia care unit in my accompaniment. MD KELSEY Zavaleta/[id number] MTDD
--- NOTE | 2018-05-28 08:49 | PN ---
Progress Note (short form) - Note Progress Note: POD#4 PT tolerated a regular diet this am. NO nausea or emesis. Vital Signs Period Temp Pulse Resp BP Sys/Nagel Pulse Ox Last 24 Hr 96.8 F-98.3 F 60-94 15-20 144-151/68-85 95-97 BRYON: 70 ml serosangrenous GEN: A&0x3, NAD ABD: soft, non-distended, inc tenderness. Inc c/d/i. BRYON removed today with the tip intact. CBC, BMP 02// 05:40 02//19 05:40 T bili 1.2 A/p: 68 yo female s/p lap luis fernando, POD#4 Continue diet as tolerated, surgcially stable Plan for discharge as per the medical team Follow-up with Dr. Benites as an outpt, next week. D/w Dr. Benites
[2018-05-28] MEDS: POLYETHYLENE GLYCOL 3350 119 GM BTL PO SCH (09:27)
[2018-05-28] MEDS: DOCUSATE SODIUM 100 MG CAPSULE (FP) PO SCH (09:27)
[2018-05-28] MEDS: NAPH,MB-DB/K PH,MBDB POWDER PACKET PO SCH ×2 (09:27→21:03)
--- NOTE | 2018-05-28 11:42 | DS ---
Physical Examination Vital Signs: Vital Signs Temperature 98.7 F 05/28/18 10:00 Pulse Rate 96 H 05/28/18 10:00 Respiratory Rate 18 05/28/18 10:00 Blood Pressure 132/96 05/28/18 10:00 O2 Sat by Pulse Oximetry (%) 95 05/28/18 08:51 Constitutional: Yes: Well Nourished, No Distress, Calm, Obese Cardiovascular: Yes: WNL, Regular Rate and Rhythm Respiratory: Yes: WNL, Regular, CTA Bilaterally. No: Accessory Muscle Use, Rhonchi, SOB, Tachypnea, Wheezes Gastrointestinal: Yes: WNL, Normal Bowel Sounds, Soft, Abdomen, Obese. No: Distention, Tenderness Renal/: Yes: WNL Musculoskeletal: Yes: WNL Extremities: Yes: WNL Edema: No Integumentary: Yes: Incision Wound/Incision: Yes: Dressing Dry and Intact Neurological: Yes: WNL, Alert, Oriented Psychiatric: Yes: WNL, Alert, Oriented Labs: CBC, BMP 05/28/18 05:40 05/28/18 05:40 Discharge Summary Reason For Visit: ABD PAIN Current Active Problems Acute cholecystitis due to biliary calculus (Acute) Elevated blood pressure reading without diagnosis of hypertension (Acute) Elevated troponin (Acute) Hypophosphatemia (Acute) Lactic acidosis (Acute) Leukocytosis (Acute) Obesity (Acute) S/P cholecystectomy (Acute) Sepsis (Acute) Severe sepsis (Acute) Transaminitis (Acute) Hospital Course: 68 year old female admitted for sepsis 2/2 acute cholecystitis. Pt s/p lap cholecystectomy POD- Condition: Good - Instructions Diet, Activity, Other Instructions: Dr. Benites Discharge Instructions Post Operative Instructions Physical activity Resume your normal everyday activity as tolerated no heavy lifting or exercise until seen by your surgeon. You may walk unlimited amounts of and climb stairs. You may resume driving the car when you feel safe and comfortable behind the wheel and are no longer taking narcotic pain medications. Wound care If you have a bandage, leave it on, and keep dry for 48 hours. After that time discard the outer bandage. If there are tapes on the skin under the outer bandage, leave them in place. They will peel off in the next 7 to 10 days. Do Not peel them off. You may shower 3 days after surgery, after removing the outer bandage. If there are tapes present on the skin, they can get wet. When showering, allow soap and water to run over the incision, do not scrub the incision. Pat dry well after showering. Diet There are no dietary restrictions. Eat healthy, high-fiber foods. Drink 6 to 8 glasses of liquid each day. This will assist in keeping your bowels are regular. Pain management You may take Tylenol (Acetaminophen) or Ibuprofen (for example, Motrin, Advil etc) for mild pain. Any pain prescription medication ordered should be taken as prescribed for moderate to severe pain. Please take as directed. If the prescribed dosage is not controlling your pain, please contact Dr Benites. Do not drive, drink alcohol or operate heavy machinery while taking narcotic pain medications. Do not take additional Acetaminophen if your narcotic pain medication contains Acetaminophen. You may Acetaminophen and Ibuprofen alternating. For example, you can take Acetaminophen at 10AM followed by Ibuprofen at 1pm, and Acetaminophen at 4pm. Take Ibuprofen with food, Acetaminophen may be taken on an empty stomach. Do not exceed 3g (3000mg) of Acetaminophen in 24 hours. Do not exceed 2400mg Ibuprofen in [address] Benites for any of the following: Severe pain not relieved by medication Fever of 101 or higher Excessive bleeding or drainage on dressing Inability to urinate Call the office at [phone] for a post operative appointment in 7 - 10 days. follow up with to assess BP, HgA1C here was 6.4, recheck post acute phase. Triglycerides 178, this number should be <150, avoid fried/greasy foods , incorporate exercise per PCP. Continue outpt follow up Referrals: Chito Benites MD [Staff Physician] - 1 Week Rickey Thomas MD [Staff Physician] - 1 Week Disposition: VNS/HOME HEALTH CARE - Home Medications Comprehensive Discharge Medication List: Ambulatory Orders Polyethylene Glycol 3350 [Miralax 119 gm Btl -] 17 gm PO DAILY #1 bottle oxyCODONE HCL [Roxicodone -] 5 mg PO Q6H PRN #14 tablet MDD 20mg 05/28/18
--- NOTE | 2018-05-28 12:05 | PN ---
Progress Note, Physician Chief Complaint: Pt sitting in chair in no acute distress. Tolerating regular diet. pain controlled. ambulating w/out difficulty. denies any chest pain, sob, n/v/d - Current Medication List Current Medications: Active Medications Alprazolam (Xanax -) 0.5 mg PO HS PRN PRN Reason: ANXIETY Last Admin: 05/27/18 23:20 Dose: 0.5 mg Docusate Sodium (Colace -) 300 mg PO DAILY [facility] Last Admin: 05/28/18 09:27 Dose: 300 mg Heparin Sodium (Porcine) (Heparin -) 5,000 unit SQ TID [facility] Last Admin: 05/28/18 06:42 Dose: 5,000 unit Piperacillin Sod/Tazobactam (Sod 4.5 gm/ Dextrose) 100 mls @ 200 mls/hr IVPB Q8H-IV [facility]; Protocol Ondansetron HCl (Zofran Injection) 4 mg IVPUSH Q6H PRN PRN Reason: NAUSEA AND/OR VOMITING Oxycodone HCl (Roxicodone -) 5 mg PO Q4H PRN PRN Reason: PAIN LEVEL 6-10 Last Admin: 05/28/18 05:01 Dose: 5 mg Oxycodone HCl (Roxicodone -) 2.5 mg PO Q4H PRN PRN Reason: PAIN LEVEL 4 - 6 Polyethylene Glycol (Miralax (For Daily Use) -) 17 gm PO DAILY [facility] Last Admin: 05/28/18 09:27 Dose: 17 gm Potassium Phos/Sodium Phos (Phos-Nak Packet -) 2 packet PO BID [facility] Stop: 05/28/18 22:01 Last Admin: 05/28/18 09:27 Dose: 2 packet - Objective Vital Signs: Vital Signs Temperature 98.7 F 05/28/18 10:00 Pulse Rate 96 H 05/28/18 10:00 Respiratory Rate 18 05/28/18 10:00 Blood Pressure 132/96 05/28/18 10:00 O2 Sat by Pulse Oximetry (%) 95 05/28/18 08:51 Constitutional: Yes: Well Nourished, No Distress, Calm, Obese Cardiovascular: Yes: WNL, Regular Rate and Rhythm Respiratory: Yes: WNL, Regular, CTA Bilaterally. No: Accessory Muscle Use, SOB , Tachypnea, Wheezes Gastrointestinal: Yes: WNL, Normal Bowel Sounds, Soft, Abdomen, Obese. No: Distention, Tenderness Genitourinary: Yes: WNL Extremities: Yes: WNL Edema: No Integumentary: Yes: Incision Wound/Incision: Yes: Dressing Dry and Intact Neurological: Yes: WNL, Alert, Oriented Psychiatric: Yes: WNL, Alert, Oriented Labs: CBC, BMP 05/28/18 05:40 05/28/18 05:40 INR, PTT INR 1.09 (0.83-1.09) 05/24/18 13:28 Assessment/Plan (1) S/P cholecystectomy Assessment/Plan: POD-4 tolerating regular diet pain controlled ambulate as tolerated IS 10x/hr surgery cleared Code(s): Z90.49 - ACQUIRED ABSENCE OF OTHER SPECIFIED PARTS OF DIGESTIVE TRACT (2) Sepsis Assessment/Plan: improved zosyn day 5 transition to po biliary fluid- grew strep ID following Code(s): A41.9 - SEPSIS, UNSPECIFIED ORGANISM (3) Acute cholecystitis due to biliary calculus Assessment/Plan: as above Code(s): K80.00 - CALCULUS OF GALLBLADDER W ACUTE CHOLECYST W/O OBSTRUCTION (4) Lactic acidosis Assessment/Plan: resolved Code(s): E87.2 - ACIDOSIS (5) Leukocytosis Assessment/Plan: improving trend Code(s): D72.829 - ELEVATED WHITE BLOOD CELL COUNT, UNSPECIFIED Qualifiers: Leukocytosis type: bandemia Qualified Code(s): D72.825 - Bandemia (6) Elevated blood pressure reading without diagnosis of hypertension Assessment/Plan: improved Code(s): R03.0 - ELEVATED BLOOD-PRESSURE READING, W/O DIAGNOSIS OF HTN (7) Obesity Assessment/Plan: recommend outpt management by PCP Code(s): E66.9 - OBESITY, UNSPECIFIED Qualifiers: Obesity type: due to excess calories Obesity classification: adult class 3 (BMI >= 40) Body mass index: BMI 45.0-49.9 (8) Elevated troponin Assessment/Plan: post op- had chest heaviness, asymptomatic now troponin peaked echo- normal ef, no acute findings. elevated pulm artery pressure, advise outpt sleep apnea screen chest/abd cta unremarkable stress test ordered- to be done tomorrow as pt needs to be NPO cardiology following Code(s): R74.8 - ABNORMAL LEVELS OF OTHER SERUM ENZYMES (9) Hypophosphatemia Assessment/Plan: mild phosnak orderd monitor level Code(s): E83.39 - OTHER DISORDERS OF PHOSPHORUS METABOLISM (10) Transaminitis Assessment/Plan: improved Code(s): R74.0 - NONSPEC ELEV OF LEVELS OF TRANSAMNS & LACTIC ACID DEHYDRGNSE Dispo: Home w/ VNS tomorrow, pending stress test
--- NOTE | 2018-05-28 15:17 | PN ---
Progress Note (short form) - Note Progress Note: alert in bed still with abdominal pain RUQ +BM op note reviewed- acute gangrenous cholycystitis, multiple stones, phlegmon- path still pending Vital Signs Period Temp Pulse Resp BP Sys/Nagel Pulse Ox Last 24 Hr 96.8 F-98.7 F 60-96 15-20 132-154/69-96 95-97 cor-rrr lungs clear, decreased bs at bases abd soft,nt ext no edema CBC, BMP 05/28/18 05:40 05/28/18 05:40 Microbiology 05/24/18 08:05 Blood - Peripheral Venous Blood Culture - Preliminary NO GROWTH OBTAINED AFTER 96 HOURS, INCUBATION TO CONTINUE FOR 1 DAYS. 05/24/18 07:50 Blood - Peripheral Venous Blood Culture - Preliminary NO GROWTH OBTAINED AFTER 96 HOURS, INCUBATION TO CONTINUE FOR 1 DAYS. 05/24/18 13:09 Bile Gram Stain - Final 05/24/18 13:09 Bile Body Fluid Culture - Final Streptococcus Equinis 05/24/18 13:09 Bile Anaerobic Culture - Final NO ANAEROBES WERE ISOLATED 05/24/18 09:47 Urine - Urine Clean Catch Urine Culture - Final NO GROWTH OBTAINED a/p pod #4 s/p lap choly-acute gangrenous cholycystitis postop leukocytosis encourage incentive spirometry obesity continue zosyn can switch to po augmentin in am 875 mg bid for another 7 days please callback if needed Problem List - Problems (1) Acute cholecystitis due to biliary calculus Code(s): K80.00 - CALCULUS OF GALLBLADDER W ACUTE CHOLECYST W/O OBSTRUCTION (2) Lactic acidosis Code(s): E87.2 - ACIDOSIS
[2018-05-28] MEDS ORDERED: PIPERACILLIN/TAZOB 4.5 GM 4.5 GM in DEXTROSE 5%-WATER 100 ML IVPB ONE (17:00)
[2018-05-28] MEDS: ALPRAZolam 0.25 MG TABLET PO PRN (21:02)
[2018-05-29] MEDS ORDERED: PIPERACILLIN/TAZOBACTAM 4.5 GM VIAL IVPB ONE (01:38)
[2018-05-29] MEDS ORDERED: DEXTROSE 5%-WATER 100 ML IVPB ONE (01:38)
[2018-05-29] MEDS: PIPERACILLIN/TAZOB 4.5 GM 4.5 GM in DEXTROSE 5%-WATER 100 ML IVPB SCH ×2 (01:47→12:31)
[2018-05-29] MEDS: oxyCODONE HCL 5 MG TABLET PO PRN ×3 (02:05→14:48)
[2018-05-29] MEDS: HEPARIN NA (PORCINE) 5,000 UNITS/ML 1ML VIAL SQ SCH ×2 (06:45→14:49)
--- NOTE | 2018-05-29 09:32 | SURG ---
Surgery Parking Enforcement Manager Note Parking Enforcement Manager: Jim Cantu PA-C (Suzy) Date of Service: 05/24/18 Diagnosis: Cholelithiasis, Acute Cholecystitis Procedure: Laparoscopic cholecystectomy I was present for the entirety of the operative procedure. For further detail, please refer to operative report. Visit type - Case Type Case Type: ED Admission - Emergency Emergency Visit: Yes ED Registration Date: 05/24/18 Care time: The patient presented to the Emergency Department on the above date and was hospitalized for further evaluation of their emergent condition. - New patient This patient is new to me today: Yes Date on this admission: 05/29/18 - Critical Care Critical Care patient: No
[2018-05-29] MEDS ORDERED: REGADENOSON 0.4 MG/5 ML PRE-FILLED SYRINGE IVPUSH ONE ×2 (10:32→10:45)
--- NOTE | 2018-05-29 10:35 | DS ---
Physical Examination Vital Signs: Vital Signs Temperature 98.1 F 05/29/18 10:00 Pulse Rate 94 H 05/29/18 10:00 Respiratory Rate 20 05/29/18 10:00 Blood Pressure 164/98 05/29/18 10:00 O2 Sat by Pulse Oximetry (%) 94 L 05/28/18 21:00 Labs: CBC, BMP 05/28/18 05:40 05/28/18 05:40 Discharge Summary Reason For Visit: ABD PAIN Current Active Problems Acute cholecystitis due to biliary calculus (Acute) Elevated blood pressure reading without diagnosis of hypertension (Acute) Elevated troponin (Acute) Hypophosphatemia (Acute) Lactic acidosis (Acute) Leukocytosis (Acute) Obesity (Acute) S/P cholecystectomy (Acute) Sepsis (Acute) Severe sepsis (Acute) Transaminitis (Acute) Hospital Course: 68 year old female admitted for sepsis 2/2 acute cholecystitis. Pt s/p lap cholecystectomy POD-5. Leukocytosis improved. Pt received 5 days of Zosyn, transitioned to po Augmentin. Pt tolerating diet, ambulating without difficulty. Pain adequately controlled. On POD1 pt had complaints of chest heaviness , mild troponin elevation noted, evaluated by cardiology, pt underwent nuclear stress test today, initially read as lateral wall ischemia, however evaluated by and reports the stress test is normal, cleared from cardiac stand point. Pt is medically stable for discharge home. PCP informed. Emphasized to pt outpt follow up. Condition: Good - Instructions Diet, Activity, Other Instructions: Dr. Benites Discharge Instructions Post Operative Instructions Physical activity Resume your normal everyday activity as tolerated no heavy lifting or exercise until seen by your surgeon. You may walk unlimited amounts of and climb stairs. You may resume driving the car when you feel safe and comfortable behind the wheel and are no longer taking narcotic pain medications. Wound care If you have a bandage, leave it on, and keep dry for 48 hours. After that time discard the outer bandage. If there are tapes on the skin under the outer bandage, leave them in place. They will peel off in the next 7 to 10 days. Do Not peel them off. You may shower 3 days after surgery, after removing the outer bandage. If there are tapes present on the skin, they can get wet. When showering, allow soap and water to run over the incision, do not scrub the incision. Pat dry well after showering. Diet There are no dietary restrictions. Eat healthy, high-fiber foods. Drink 6 to 8 glasses of liquid each day. This will assist in keeping your bowels are regular. Pain management You may take Tylenol (Acetaminophen) or Ibuprofen (for example, Motrin, Advil etc) for mild pain. Any pain prescription medication ordered should be taken as prescribed for moderate to severe pain. Please take as directed. If the prescribed dosage is not controlling your pain, please contact Dr Benites. Do not drive, drink alcohol or operate heavy machinery while taking narcotic pain medications. Do not take additional Acetaminophen if your narcotic pain medication contains Acetaminophen. You may Acetaminophen and Ibuprofen alternating. For example, you can take Acetaminophen at 10AM followed by Ibuprofen at 1pm, and Acetaminophen at 4pm. Take Ibuprofen with food, Acetaminophen may be taken on an empty stomach. Do not exceed 3g (3000mg) of Acetaminophen in 24 hours. Do not exceed 2400mg Ibuprofen in [address] Benites for any of the following: Severe pain not relieved by medication Fever of 101 or higher Excessive bleeding or drainage on dressing Inability to urinate Call the office at [phone] for a post operative appointment in 7 - 10 days. follow up with to assess BP, HgA1C here was 6.4, recheck post acute phase. Triglycerides 178, this number should be <150, avoid fried/greasy foods , incorporate exercise per PCP. Continue outpt follow up sleep apnea screen outpt antibx x 7 days stop colace/miralax if having diarrhea Referrals: Chito Benites MD [Staff Physician] - 1 Week Too Liu MD [Staff Physician] - Rickey Thomas MD [Staff Physician] - 1 Week Disposition: VNS/HOME HEALTH CARE - Home Medications Comprehensive Discharge Medication List: Ambulatory Orders Polyethylene Glycol 3350 [Miralax 119 gm Btl -] 17 gm PO DAILY #1 bottle oxyCODONE HCL [Roxicodone -] 5 mg PO Q6H PRN #14 tablet MDD 20mg 05/28/18 Amoxicillin/Potassium Clav [Augmentin 875-125 Tablet] 1 each PO BID 7 Days #14 tablet 05/29/18
[2018-05-29] MEDS: POLYETHYLENE GLYCOL 3350 119 GM BTL PO SCH (12:31)
[2018-05-29] MEDS: DOCUSATE SODIUM 100 MG CAPSULE (FP) PO SCH (12:31)
[2018-05-29 13:13] VITALS: BP 161/89; PULSE 100; TEMP 98.2
[2018-05-29] MEDS ORDERED: ALPRAZolam 0.25 MG TABLET PO PRN (14:54)
--- NOTE | 2018-05-29 15:01 | PATH ---
Surgical Pathology Report Patient Name: CHUY BALES Med. Rec. #: [id number] /Age/Gender: 1950 (Age: 68) / F Account: [id number] Location: [address] [place] [address]/[facility] Taken: 05/24/2018 Received: 05/28/2018 Reported: 05/29/2018 Physicians: MD Nereyda Lee FNP Specimen(s) Received GALLBLADDER Clinical History Abdominal pain Final Diagnosis GALLBLADDER, LAPAROSCOPIC CHOLECYSTECTOMY: CHRONIC CHOLECYSTITIS WITH CHOLELITHIASIS. Electronically Signed Abrli Simms M.D. Gross Description Received in formalin, labeled "gallbladder," is an 11.0 x 4.3 x 2.0 cm. gallbladder with a 0.2 cm. in length portion of cystic duct attached. The outer surface is mckenzie-brown, necrotic with multiple defects and varies from smooth to shaggy. The lumen contains brown, sludgelike bile as well as abundant brown-green, irregular to fragmented choleliths ranging from 0.1-1.5 cm in greatest dimension. The mucosa is brown and eroded. The wall of the gallbladder averages 0.1 cm. in thickness. Ornamenter sections are submitted in one cassette. 05/28/201805/28/2018
--- NOTE | 2018-05-29 15:35 | PN ---
Progress Note, Physician - Current Medication List Current Medications: Active Medications Alprazolam (Xanax -) 0.5 mg PO Q8H PRN PRN Reason: ANXIETY Amoxicillin/Clavulanate Potassium (Augmentin - 875mg Tablet) 1 tab PO BID@0800, 1730 [facility] Heparin Sodium (Porcine) (Heparin -) 5,000 unit SQ TID [facility] Last Admin: 05/29/18 14:49 Dose: 5,000 unit Ondansetron HCl (Zofran Injection) 4 mg IVPUSH Q6H PRN PRN Reason: NAUSEA AND/OR VOMITING Last Admin: 05/28/18 12:16 Dose: 4 mg Oxycodone HCl (Roxicodone -) 5 mg PO Q4H PRN PRN Reason: PAIN LEVEL 6-10 Last Admin: 05/29/18 14:48 Dose: 5 mg Oxycodone HCl (Roxicodone -) 2.5 mg PO Q4H PRN PRN Reason: PAIN LEVEL 4 - 6 - Objective Vital Signs: Vital Signs Temperature 98.2 F 05/29/18 13:12 Pulse Rate 100 H 05/29/18 13:12 Respiratory Rate 24 H 05/29/18 13:12 Blood Pressure 161/89 05/29/18 13:12 O2 Sat by Pulse Oximetry (%) 95 05/29/18 09:00 Constitutional: Yes: Well Nourished, No Distress, Anxious, Obese Cardiovascular: Yes: WNL, Regular Rate and Rhythm Respiratory: Yes: WNL, Regular, CTA Bilaterally. No: Accessory Muscle Use, SOB , Tachypnea, Wheezes Gastrointestinal: Yes: WNL, Normal Bowel Sounds, Soft. No: Distention, Tenderness Genitourinary: Yes: WNL Musculoskeletal: Yes: WNL Extremities: Yes: WNL Integumentary: Yes: Incision Wound/Incision: Yes: Dressing Dry and Intact Neurological: Yes: WNL, Alert, Oriented Psychiatric: Yes: WNL, Alert, Oriented Labs: CBC, BMP 05/28/18 05:40 05/28/18 05:40 INR, PTT INR 1.09 (0.83-1.09) 05/24/18 13:28 Assessment/Plan (1) S/P cholecystectomy Assessment/Plan: POD-5 tolerating regular diet pain controlled ambulate as tolerated IS 10x/hr surgery cleared Code(s): Z90.49 - ACQUIRED ABSENCE OF OTHER SPECIFIED PARTS OF DIGESTIVE TRACT (2) Sepsis Assessment/Plan: resolved transitioned to po augmentin Code(s): A41.9 - SEPSIS, UNSPECIFIED ORGANISM (3) Acute cholecystitis due to biliary calculus Assessment/Plan: as above Code(s): K80.00 - CALCULUS OF GALLBLADDER W ACUTE CHOLECYST W/O OBSTRUCTION (4) Lactic acidosis Assessment/Plan: resolved Code(s): E87.2 - ACIDOSIS (5) Leukocytosis Assessment/Plan: improving Code(s): D72.829 - ELEVATED WHITE BLOOD CELL COUNT, UNSPECIFIED Qualifiers: Leukocytosis type: bandemia Qualified Code(s): D72.825 - Bandemia (6) Elevated blood pressure reading without diagnosis of hypertension Assessment/Plan: improved Code(s): R03.0 - ELEVATED BLOOD-PRESSURE READING, W/O DIAGNOSIS OF HTN (7) Obesity Assessment/Plan: recommend outpt management by PCP Code(s): E66.9 - OBESITY, UNSPECIFIED Qualifiers: Obesity type: due to excess calories Obesity classification: adult class 3 (BMI >= 40) Body mass index: BMI 45.0-49.9 (8) Elevated troponin Assessment/Plan: post op- had chest heaviness, asymptomatic now troponin peaked echo- normal ef, no acute findings. elevated pulm artery pressure, advise outpt sleep apnea screen chest/abd cta unremarkable stress test- lateral wall ischemia cardiology following Code(s): R74.8 - ABNORMAL LEVELS OF OTHER SERUM ENZYMES (9) Hypophosphatemia Assessment/Plan: resolved Code(s): E83.39 - OTHER DISORDERS OF PHOSPHORUS METABOLISM (10) Transaminitis Assessment/Plan: improved Code(s): R74.0 - NONSPEC ELEV OF LEVELS OF TRANSAMNS & LACTIC ACID DEHYDRGNSE (1) Abnormal stress test Assessment/Plan: nuclear stress test revealed moderate lateral wall ischemia awaiting cardiology evaluation Code(s): R94.39 - ABNORMAL RESULT OF OTHER CARDIOVASCULAR FUNCTION STUDY Dispo: Home w/ VNS pending cardiology clearance
--- NOTE | 2018-05-29 16:44 | PN ---
Progress Note (short form) - Note Progress Note: s: no cp sob palps dizzy o: Vital Signs Period Temp Pulse Resp BP Sys/Nagel Pulse Ox Last 24 Hr 98.1 F-98.5 F 87-100 20-24 148-164/77-98 94-95 nad no jvd rrr s1s2 no mrg cta bl nl eff aaox3 no le e/c/c abd nt nd pos bs Current Medications Generic Name Dose Route Start Last Admin Trade Name Freq PRN Reason Stop Dose Admin Alprazolam 0.5 mg 05/29/18 14:54 Xanax - PO Q8H PRN ANXIETY Amoxicillin/Clavulanate Potassium 1 tab 05/29/18 17:30 Augmentin - 875mg Tablet PO BID@0800,1730 [facility] Heparin Sodium (Porcine) 5,000 unit 05/27/18 22:00 05/29/18 14:49 Heparin - SQ 5,000 unit TID [facility] Administration Ondansetron HCl 4 mg 05/27/18 16:20 05/28/18 12:16 Zofran Injection IVPUSH 4 mg Q6H PRN Administration NAUSEA AND/OR VOMITING Oxycodone HCl 5 mg 05/27/18 15:15 05/29/18 14:48 Roxicodone - PO 5 mg Q4H PRN Administration PAIN LEVEL 6-10 Oxycodone HCl 2.5 mg 05/27/18 15:15 Roxicodone - PO Q4H PRN PAIN LEVEL 4 - 6 CBC, BMP 05/28/18 05:40 05/28/18 05:40 ECG 05/24: NSR, WNL (no priors) ECG 05/25: NSR, nonsp ST's anterior leads CXR: widened mediastinum. clear lungs/pleura echo 05/2018: nl lv/rv, mild-mod tr, mild pr cta chest 05/2018: no aortic aneurysm/dissection mibi 05/2018: reported as mild lat ischemia-->on my review there is normal MPI and nl lvef a/p: acute cholecystitis, s/p lap luis fernando: -per surgery -LFTs trending down from peak elevated troponin, chest heaviness: -reported chest heaviness transiently on POD #1 in ICU-->today she reports she never had chest symptoms, had epigastric/ruq pain. -trop indeterminate range, fairly flat trend (0.02-0.3-0.1). ECG on day of trop peak with nonspecific ST changes -echo and cta chest unremarkable -i reviewed nuclear stress test today and it shows normal myocardial perfusion -cardiac carrion stable for dc HTN: -presently controlled -same plan
[2018-05-29] MEDS ORDERED: AMOX TR/POT CLAV 875MG/125MG TABLETS (FP) PO SCH (17:30)
== END 2018-05-29 17:56 | disposition home health service (06) | DRG 854 ==
LOC: JER 06:28 → JERBED 12:38 → JICU 20:39 → J6S 05-27 15:40
PROVIDERS: ADMIT Internal Medicine; ATTEND Nurse Practitioner Family
PROC: 0FT44ZZ Resection of Gallbladder, Percutaneous Endoscopic Approach (ICD-10-PCS; principal; 2018-05-24 13:00)
DX: A41.9 Sepsis, unspecified organism (principal); K80.00 Calculus of gallbladder with acute cholecystitis without obstruction; N17.9 Acute kidney failure, unspecified; I24.8 Other forms of acute ischemic heart disease; K57.32 Diverticulitis of large intestine without perforation or abscess without bleeding; E87.2 Acidosis; Z68.42 Body mass index [BMI] 45.0-49.9, adult; N28.89 Other specified disorders of kidney and ureter; R03.0 Elevated blood-pressure reading, without diagnosis of hypertension; E66.01 Morbid (severe) obesity due to excess calories; G47.33 Obstructive sleep apnea (adult) (pediatric); E83.39 Other disorders of phosphorus metabolism; R74.8 Abnormal levels of other serum enzymes; R74.0 Nonspecific elevation of levels of transaminase and lactic acid dehydrogenase [LDH]
CPT/HCPCS: 36415; 71045-TC-FY; 71275-TC; 74175-TC; 74177-TC; 76700-TC; 78452-TC; 80053; 80061; 80076; 81003; 81015; 82550; 82553; 83036; 83605; 83690; 83721; 83735; 84100; 84478; 84484; 85025; 85610; 86850; 86900; 86901; 87040; 87070; 87075; 87086; 87186; 87205; 88304-TC; 93005; 93010; 93017; 93306-TC; 94010; 94760; 97116-GP; 97161-GP; 99283-25; A9502; J0131; J1644; J2785